=== PATIENT | female | born 1965 | race African-American/Black ===

== ENCOUNTER 2019-06-26 06:17 | Emergency (ER) | payer MEDICAID ==
[~2019-06-26] VITALS: Ht 160 cm; Wt 90.0 kg
[2019-06-26] MEDS ORDERED: KETOROLAC 30MG/ML VIAL IM ONE (07:30)
[2019-06-26] MEDS ORDERED: HYDROCODONE/ACETAMINOPHEN 5/325MG TABLET PO ONE (07:30)
[2019-06-26] MEDS ORDERED: DIPHENHYDRAMINE 25MG CAPSULE PO ONE (09:15)
[2019-06-26 10:23] LABS: CLARITY URINE TURBID (CLEAR); COLOR URINE DARK YELLOW (YELLOW); KETONES URINE TRACE (NEGATIVE); LEUKOCYTE ESTERASE URINE 1+ (NEGATIVE); NITRITE URINE NEGATIVE (NEGATIVE); OCCULT BLOOD URINE NEGATIVE (NEGATIVE); PROTEIN URINE TRACE (NEGATIVE); SPECIFIC GRAVITY URINE 1.026 (1.005-1.030); UROBILINOGEN URINE 0.2 E.U./dL (0.2-1.0)
[2019-06-26 10:52] LABS: UCG SCREEN NEGATIVE
[2019-06-26 11:15] VITALS: BP 125/70
== END 2019-06-26 11:25 | disposition left against medical advice (07) ==
LOC: ER 06:17
DX: M54.42 Lumbago with sciatica, left side (principal); R51 Headache; F17.290 Nicotine dependence, other tobacco product, uncomplicated; E78.00 Pure hypercholesterolemia, unspecified; I10 Essential (primary) hypertension
CPT/HCPCS: 72100; 81003; 81025; 96372; 99284; J1885; Q0163

== ENCOUNTER 2020-05-13 05:24 | Emergency (ER) | payer MEDICAID ==
[~2020-05-13] VITALS: Ht 160 cm; Wt 69.0 kg
[2020-05-13] MEDS ORDERED: ACETAMINOPHEN 325MG TABLET PO STA (05:52)
[2020-05-13 06:11] LABS: BASOPHILS % 0.6 % (0.0-2.0); EOSINOPHILS % 1.3 % (0.0-5.0); HEMOGLOBIN. 13.9 g/dL (12.0-16.0); LYMPHOCYTES % 27.5 % (20.0-50.0); MEAN CORPUSCULAR HEMOGLOBIN 30.6 pg (28.0-32.0); MEAN CORPUSCULAR VOLUME 92.6 fL (81.0-99.0); MONOCYTES % 10.7 % (2.0-8.0); NEUTROPHILS % 59.9 % (40.0-76.0); PLATELET 216 x1000/uL (130-400); RED BLOOD CELL COUNT 4.53 mill/uL (4.2-5.4); RED CELL DISTRIBUTION WIDTH 13.9 % (11.6-14.6)
[2020-05-13] MEDS ORDERED: MORPHINE SULFATE 4 MG/ML CPJ (NOT FOR IM USE) IV STA (06:19)
[2020-05-13] MEDS ORDERED: ONDANSETRON HCL 4MG/2ML INJ IV STA (06:19)
[2020-05-13 06:23] LABS: CHLORIDE 109 mEq/L (98-107)
[2020-05-13 06:25] LABS: CLARITY URINE CLEAR (CLEAR); COLOR URINE YELLOW (YELLOW); KETONES URINE NEGATIVE (NEGATIVE); LEUKOCYTE ESTERASE URINE TRACE (NEGATIVE); NITRITE URINE NEGATIVE (NEGATIVE); OCCULT BLOOD URINE NEGATIVE (NEGATIVE); PROTEIN URINE NEGATIVE (NEGATIVE); SPECIFIC GRAVITY URINE 1.021 (1.005-1.030); UROBILINOGEN URINE 0.2 E.U./dL (0.2-1.0)
[2020-05-13 06:29] LABS: ETHANOL BLOOD < 10 mg/dL; INR 1.1; PROTHROMBIN TIME 11.1 sec (9.6-11.0)
[2020-05-13] MEDS ORDERED: SODIUM CHLORIDE 0.9% 1,000 ML IV ONE (06:30)
[2020-05-13 07:19] LABS: METHADONE URINE SCREEN NEGATIVE (NEGATIVE); OPIATES URINE SCREEN NEGATIVE (NEGATIVE)
[2020-05-13 07:21] LABS: *AMPHETAMINES SCREEN URINE NEGATIVE (NEGATIVE); *BARBITURATES SCREEN URINE NEGATIVE (NEGATIVE); *BENZODIAZEPINES SCREEN URINE NEGATIVE (NEGATIVE); *COCAINE SCREEN URINE PRESUMTIVE POSITIVE (NEGATIVE); CANNABINOID URINE SCREEN NEGATIVE (NEGATIVE); PHENCYCLIDINE URINE SCREEN NEGATIVE (NEGATIVE)
[2020-05-13 09:31] VITALS: BP 155/81
== END 2020-05-13 09:33 | disposition home or self-care (01) ==
LOC: ER 05:37
DX: R10.9 Unspecified abdominal pain (principal); M54.30 Sciatica, unspecified side; F14.10 Cocaine abuse, uncomplicated; I10 Essential (primary) hypertension
CPT/HCPCS: 36415; 74176; 76705; 80053; 80305; 80320; 81003; 83605; 83690; 85025; 85610; 96361; 96374; 96375; 99285; J2270; J2405; J7030; G0480

== ENCOUNTER 2023-03-02 07:17 | Emergency (ER) | payer MEDICAID, OTHER ==
[~2023-03-02] VITALS: Ht 165.1 cm; Wt 70.0 kg
[2023-03-02 07:37] VITALS: O2SAT 96
[2023-03-02] MEDS ORDERED: ASPIRIN 325MG EC TABLET PO ONE (09:30)
[2023-03-02 09:31] LABS: BASOPHILS % 0.7 % (0.0-2.0); EOSINOPHILS % 0.9 % (0.0-5.0); HEMATOCRIT. 40.2 % (36.0-48.0); LYMPHOCYTES % 15.1 % (20.0-50.0); MEAN CORPUSCULAR HEMOGLOBIN 29.7 pg (28.0-32.0); MEAN CORPUSCULAR HGB CONC 32.3 g/dL (31.0-37.0); MEAN PLATELET VOLUME 9.3 fl (7.4-10.4); MONOCYTES % 6.8 % (2.0-8.0); NEUTROPHILS % 76.5 % (40.0-76.0); PLATELET 212 x1000/uL (130-400); RED BLOOD CELL COUNT 4.37 mill/uL (4.2-5.4)
[2023-03-02 09:38] LABS: CHLORIDE 104 mEq/L (98-107); INDEX HEMOLYSI 3 (1-3); INDEX ICTERIC 1 (1-4); INDEX LIPEMIC 1 (1-3); POTASSIUM 4.5 mEq/L (3.5-5.1); SODIUM 138 mEq/L (136-145)
[2023-03-02 09:47] LABS: ALANINE AMINOTRANSFERASE 24 IU/L (13-61); ALBUMIN 3.6 g/dL (3.4-5.0); ASPARTATE AMINOTRANSFERASE 27 IU/L (15-37); BILIRUBIN TOTAL 0.4 mg/dL (0.1-1.0); CARBON DIOXIDE 25 mEq/L (21-32); CREATININE 0.7 mg/dL (0.6-1.3); GLUCOSE 104 mg/dL (70-105); NT PRO B-TYPE NATRIURETIC PEP 4610 pg/mL (5-125); PROTEIN TOTAL 7.5 g/dL (6.0-8.3); TROPONIN I HIGH SENSITIVITY 39 ng/L (<54); UREA NITROGEN BLOOD 19 mg/dL (7-21)
[2023-03-02 10:02] VITALS: BP 109/70; PULSE 81; RESP 16; TEMP 98.1
[2023-03-02] MEDS ORDERED: FUROSEMIDE 40MG/4ML VIAL IVP ONE (12:00)
[2023-03-02] MEDS ORDERED: LISI10TA26 MT (13:19)
[2023-03-02] MEDS ORDERED: FURO-152 MT (13:19)
[2023-03-02] MEDS ORDERED: ASPI-1497 MT (13:19)
== END 2023-03-02 13:34 | disposition home or self-care (01) ==
LOC: ER 07:17
DX: I11.0 Hypertensive heart disease with heart failure (principal); I50.9 Heart failure, unspecified; R42 Dizziness and giddiness
CPT/HCPCS: 36415; 71045; 80053; 83880; 84484; 85025; 93005; 99285

== ENCOUNTER 2023-05-18 06:25 | Emergency (ER) | payer OTHER ==
[~2023-05-18] VITALS: Ht 167.6 cm; Wt 73.0 kg
[~2023-05-18 06:25] MED LIST: ASPI-1497 MT; FURO-152 MT; LISI10TA26 MT
[2023-05-18 06:26] VITALS: O2SAT 99
[2023-05-18] MEDS ORDERED: LIDOCAINE HCL/PF 1% 10 MG/ML 5ML VIAL INFIL ONE (06:30)
[2023-05-18] MEDS ORDERED: TETANUS, DIPHTHERIA, PERTUSSIS VAC/PF 0.5ML (>10YR OLD) IM ONE (06:30)
[2023-05-18 06:55] VITALS: TEMP 97.9
[2023-05-18 07:35] LABS: CHLORIDE 105 mEq/L (98-107); INDEX HEMOLYSI 4 (1-3); INDEX ICTERIC 1 (1-4); INDEX LIPEMIC 1 (1-3); SODIUM 139 mEq/L (136-145)
[2023-05-18 07:42] LABS: BASOPHILS % 0.8 % (0.0-2.0); EOSINOPHILS % 0.7 % (0.0-5.0); HEMATOCRIT. 43.9 % (36.0-48.0); HEMOGLOBIN. 14.4 g/dL (12.0-16.0); LYMPHOCYTES % 39.6 % (20.0-50.0); MEAN CORPUSCULAR HEMOGLOBIN 30.6 pg (28.0-32.0); MEAN CORPUSCULAR HGB CONC 32.7 g/dL (31.0-37.0); MEAN CORPUSCULAR VOLUME 93.5 fL (81.0-99.0); MEAN PLATELET VOLUME 8.9 fl (7.4-10.4); MONOCYTES % 9.3 % (2.0-8.0); NEUTROPHILS % 49.6 % (40.0-76.0); PLATELET 296 x1000/uL (130-400); RED BLOOD CELL COUNT 4.69 mill/uL (4.2-5.4); RED CELL DISTRIBUTION WIDTH 14.8 % (11.6-14.6); WHITE BLOOD COUNT 5.5 x1000/uL (4.5-11.0)
[2023-05-18 07:45] LABS: ALANINE AMINOTRANSFERASE 24 IU/L (13-61); ALBUMIN 3.9 g/dL (3.4-5.0); ASPARTATE AMINOTRANSFERASE 41 IU/L (15-37); BILIRUBIN TOTAL 0.4 mg/dL (0.1-1.0); CALCIUM 8.9 mg/dL (8.5-10.1); CARBON DIOXIDE 26 mEq/L (21-32); CREATININE 0.7 mg/dL (0.6-1.3); ETHANOL BLOOD 227 mg/dL (<10); GLUCOSE 96 mg/dL (70-105); PROTEIN TOTAL 8.6 g/dL (6.0-8.3); UREA NITROGEN BLOOD 16 mg/dL (7-21)
[2023-05-18 08:03] LABS: POTASSIUM 3.7 mEq/L (3.5-5.1)
[2023-05-18 12:22] VITALS: BP 126/83; PULSE 91; RESP 18
== END 2023-05-18 12:29 | disposition short-term general hospital (02) ==
LOC: ER 06:25 → CANBEDREQ 09:30 → ER 12:29
DX: S01.112A Laceration without foreign body of left eyelid and periocular area, initial encounter (principal); I11.0 Hypertensive heart disease with heart failure; I50.9 Heart failure, unspecified; I63.9 Cerebral infarction, unspecified; W19.XXXA Unspecified fall, initial encounter; Y93.89 Activity, other specified; Y92.89 Other specified places as the place of occurrence of the external cause; Y99.8 Other external cause status
CPT/HCPCS: 80053; 80320; 85025; 36415; 71045; 73560; 70450; 90715; 12011; 90471; 99285; J3490; Z7610 ×4; G0480

== ENCOUNTER 2023-07-18 12:16 | Emergency (ER) | payer OTHER ==
[~2023-07-18] VITALS: Ht 175.3 cm; Wt 78.0 kg
[2023-07-18 12:19] VITALS: O2SAT 97
[2023-07-18 13:36] LABS: BASOPHILS % 0.7 % (0.0-2.0); EOSINOPHILS % 1.1 % (0.0-5.0); HEMATOCRIT. 36.1 % (36.0-48.0); HEMOGLOBIN. 12.3 g/dL (12.0-16.0); LYMPHOCYTES % 15.5 % (20.0-50.0); MEAN CORPUSCULAR HEMOGLOBIN 31.3 pg (28.0-32.0); MEAN CORPUSCULAR HGB CONC 34.1 g/dL (31.0-37.0); MEAN CORPUSCULAR VOLUME 91.7 fL (81.0-99.0); MEAN PLATELET VOLUME 9.4 fl (7.4-10.4); MONOCYTES % 8.4 % (2.0-8.0); NEUTROPHILS % 74.3 % (40.0-76.0); PLATELET 342 x1000/uL (130-400); RED BLOOD CELL COUNT 3.93 mill/uL (4.2-5.4); RED CELL DISTRIBUTION WIDTH 14.8 % (11.6-14.6); WHITE BLOOD COUNT 9.3 x1000/uL (4.5-11.0)
[2023-07-18 13:51] LABS: ALANINE AMINOTRANSFERASE 12 IU/L (10-49); ALBUMIN 3.9 g/dL (3.2-4.8); ASPARTATE AMINOTRANSFERASE 30 IU/L (<34); BILIRUBIN TOTAL 1.1 mg/dL (0.1-1.0); CALCIUM 9.1 mg/dL (8.7-10.4); CARBON DIOXIDE 29 mEq/L (21-32); CHLORIDE 102 mEq/L (98-107); CREATININE 0.8 mg/dL (0.6-1.0); GLUCOSE 102 mg/dL (70-105); POTASSIUM 4.4 mEq/L (3.5-5.1); PROTEIN TOTAL 6.5 g/dL (6.0-8.3); SODIUM 137 mEq/L (136-145); TROPONIN I HIGH SENSITIVITY 20 ng/L (3.0-34); UREA NITROGEN BLOOD 12 mg/dL (9-23)
[2023-07-18] MEDS ORDERED: MORPHINE SULFATE 4 MG/ML CPJ (NOT FOR IM USE) IV ONE (14:30)
[2023-07-18] MEDS ORDERED: FUROSEMIDE 40MG/4ML VIAL IVP ONE (20:00)
[2023-07-18 23:18] VITALS: BP 132/72; PULSE 76; RESP 17; TEMP 98.3
== END 2023-07-18 23:35 | disposition short-term general hospital (02) ==
LOC: ER 12:16
DX: I11.0 Hypertensive heart disease with heart failure (principal); I50.9 Heart failure, unspecified; R10.9 Unspecified abdominal pain; Z20.822 Contact with and (suspected) exposure to COVID-19
CPT/HCPCS: 80053; 83880; 83690; 85025; 84484; 87804 ×2; 36415; 71045; 74176; 93005; 96374; 96375; 99285; 87426; J1940; J2270; C9803; Z7610 ×4

== ENCOUNTER 2023-12-03 13:24 | Emergency (ER) | payer OTHER ==
[~2023-12-03] VITALS: Ht 165.1 cm; Wt 68.0 kg
[~2023-12-03 13:24] MED LIST changes: +ALBU18HF2 IH; +FURO-151 MT
[2023-12-03 13:37] VITALS: O2SAT 99
[2023-12-03] MEDS: METOCLOPRAMIDE HCL 10MG/2ML VIAL IV ONE (15:05)
[2023-12-03] MEDS: MORPHINE SULFATE 4 MG/ML INJ (FOR IV/IM USE) IV STA (15:07)
[2023-12-03 15:25] LABS: CLARITY URINE CLEAR (CLEAR); COLOR URINE YELLOW (YELLOW); GLUCOSE URINE 2+ (NEGATIVE); KETONES URINE NEGATIVE (NEGATIVE); LEUKOCYTE ESTERASE URINE NEGATIVE (NEGATIVE); NITRITE URINE NEGATIVE (NEGATIVE); OCCULT BLOOD URINE NEGATIVE (NEGATIVE); PH URINE 5.5 (4.5-8.0); PROTEIN URINE NEGATIVE (NEGATIVE); SPECIFIC GRAVITY URINE 1.009 (1.005-1.030); UROBILINOGEN URINE 0.2 E.U./dL (0.2-1.0)
[2023-12-03 15:51] LABS: BASOPHILS % 0.5 % (0.0-2.0); EOSINOPHILS % 0.8 % (0.0-5.0); HEMATOCRIT. 37.7 % (36.0-48.0); HEMOGLOBIN. 12.8 g/dL (12.0-16.0); LYMPHOCYTES % 11.7 % (20.0-50.0); MEAN CORPUSCULAR HEMOGLOBIN 32.1 pg (28.0-32.0); MEAN CORPUSCULAR VOLUME 94.4 fL (81.0-99.0); MEAN PLATELET VOLUME 8.7 fl (7.4-10.4); MONOCYTES % 9.7 % (2.0-8.0); NEUTROPHILS % 77.3 % (40.0-76.0); PLATELET 276 x1000/uL (130-400); RED CELL DISTRIBUTION WIDTH 14.9 % (11.6-14.6); WHITE BLOOD COUNT 11.5 x1000/uL (4.5-11.0)
[2023-12-03 15:52] LABS: BACTERIA URINE NONE SEEN; RBC URINE NONE SEEN /hpf (0-2); SQUAMOUS EPITHELIAL CELL URINE NONE SEEN /lpf (RARE/1+); WBC URINE NONE SEEN /hpf (0-2)
[2023-12-03 15:59] LABS: CHLORIDE 107 mEq/L (98-107); SODIUM 140 mEq/L (136-145)
[2023-12-03 16:00] LABS: CALCIUM 9.3 mg/dL (8.7-10.4); CARBON DIOXIDE 26 mEq/L (21-32)
[2023-12-03 16:05] LABS: CREATININE 0.9 mg/dL (0.6-1.0); GLUCOSE 98 mg/dL (70-105); UREA NITROGEN BLOOD 12 mg/dL (9-23)
[2023-12-03 16:07] LABS: ALANINE AMINOTRANSFERASE 14 IU/L (10-49); ALBUMIN 4.2 g/dL (3.2-4.8); ASPARTATE AMINOTRANSFERASE 28 IU/L (<34); BILIRUBIN DIRECT 0.2 mg/dL (<=3.0); BILIRUBIN TOTAL 0.6 mg/dL (0.1-1.0); PROTEIN TOTAL 7.1 g/dL (6.0-8.3); TROPONIN I HIGH SENSITIVITY 23 ng/L (3.0-34)
[2023-12-03 20:04] VITALS: BP 132/65; PULSE 92; RESP 20; TEMP 98.7
== END 2023-12-03 20:05 | disposition short-term general hospital (02) ==
LOC: ER 14:16 → CANBEDREQ 17:54 → ER 20:05
DX: I11.0 Hypertensive heart disease with heart failure (principal); I50.9 Heart failure, unspecified; R51.9 Headache, unspecified; R10.9 Unspecified abdominal pain; D72.829 Elevated white blood cell count, unspecified; Z98.890 Other specified postprocedural states; Z79.82 Long term (current) use of aspirin
CPT/HCPCS: 80076; 80048; 81003; 83880; 83605; 83690; 85025; 84484; 36415; 71045; 93005; 96374; 96375; 99285; J2765; J2270; Z7610 ×2

== ENCOUNTER 2023-12-25 16:23 | Emergency (ER) | payer OTHER ==
[~2023-12-25] VITALS: Ht 167.6 cm; Wt 68.0 kg
[2023-12-25 16:38] VITALS: O2SAT 100
[2023-12-25 19:10] LABS: BASOPHILS % 0.5 % (0.0-2.0); EOSINOPHILS % 0.7 % (0.0-5.0); HEMOGLOBIN. 12.7 g/dL (12.0-16.0); LYMPHOCYTES % 24.8 % (20.0-50.0); MEAN CORPUSCULAR HEMOGLOBIN 31.9 pg (28.0-32.0); MEAN CORPUSCULAR HGB CONC 34.3 g/dL (31.0-37.0); MEAN CORPUSCULAR VOLUME 93.1 fL (81.0-99.0); MEAN PLATELET VOLUME 8.8 fl (7.4-10.4); MONOCYTES % 9.4 % (2.0-8.0); NEUTROPHILS % 64.6 % (40.0-76.0); PLATELET 230 x1000/uL (130-400); RED BLOOD CELL COUNT 3.98 mill/uL (4.2-5.4); RED CELL DISTRIBUTION WIDTH 14.4 % (11.6-14.6)
[2023-12-25 19:18] LABS: CHLORIDE 108 mEq/L (98-107); POTASSIUM 4.2 mEq/L (3.5-5.1); SODIUM 140 mEq/L (136-145)
[2023-12-25 19:19] LABS: CARBON DIOXIDE 25 mEq/L (21-32)
[2023-12-25 19:20] LABS: CALCIUM 9.1 mg/dL (8.7-10.4)
[2023-12-25 19:24] LABS: CREATININE 0.9 mg/dL (0.6-1.0); GLUCOSE 100 mg/dL (70-105)
[2023-12-25 19:25] LABS: UREA NITROGEN BLOOD 14 mg/dL (9-23)
[2023-12-25 19:26] LABS: ALANINE AMINOTRANSFERASE 19 IU/L (10-49); ALBUMIN 4.1 g/dL (3.2-4.8); ASPARTATE AMINOTRANSFERASE 36 IU/L (<34); TROPONIN I HIGH SENSITIVITY 21 ng/L (3.0-34)
[2023-12-25 19:27] LABS: BILIRUBIN DIRECT 0.2 mg/dL (<=3.0); BILIRUBIN TOTAL 0.7 mg/dL (0.1-1.0); PROTEIN TOTAL 6.9 g/dL (6.0-8.3)
[2023-12-25 20:24] LABS: TROPONIN I HIGH SENSITIVITY 19 ng/L (3.0-34)
[2023-12-25] MEDS: MORPHINE SULFATE 4 MG/ML INJ (FOR IV/IM USE) IV ONE (20:27)
[2023-12-25] MEDS: ASPIRIN 325MG TABLET PO ONE (20:28)
[2023-12-25] MEDS: NITROGLYCERIN OINT 1GM/INCH UDPKT TD ONE (20:28)
[2023-12-25 23:19] VITALS: BP 131/93; PULSE 94; RESP 18; TEMP 98.6
== END 2023-12-25 23:29 | disposition short-term general hospital (02) ==
LOC: ER 16:23 → CANBEDREQ 12-26 07:25
DX: R07.9 Chest pain, unspecified (principal); I11.0 Hypertensive heart disease with heart failure; I50.9 Heart failure, unspecified; Z98.890 Other specified postprocedural states
CPT/HCPCS: 80076; 80048; 83880; 85025; 84484; 36415; 71045; 96374; 99285; J2270; Z7610 ×2

== ENCOUNTER 2024-01-12 05:54 | Inpatient (IN) | payer OTHER ==
[~2024-01-12] VITALS: Ht 157.5 cm; Wt 60.8 kg
[2024-01-12 06:10] VITALS: RESP 26
[2024-01-12 06:16] VITALS: PULSE 93; RESP 14; O2SAT 99
[2024-01-12] MEDS: IPRATROPIUM BROMIDE (0.02%) 0.5MG/2.5ML NEB HHN STA (06:16)
[2024-01-12] MEDS: ALBUTEROL (0.083%) 2.5MG/3ML NEB HHN STA (06:16)
[2024-01-12 06:22] LABS: BASOPHILS % 0.9 % (0.0-2.0); HEMATOCRIT. 40.1 % (36.0-48.0); HEMOGLOBIN. 13.2 g/dL (12.0-16.0); LYMPHOCYTES % 23.5 % (20.0-50.0); MEAN CORPUSCULAR HEMOGLOBIN 31.5 pg (28.0-32.0); MEAN CORPUSCULAR HGB CONC 32.8 g/dL (31.0-37.0); MEAN PLATELET VOLUME 8.8 fl (7.4-10.4); MONOCYTES % 9.3 % (2.0-8.0); NEUTROPHILS % 65.3 % (40.0-76.0); PLATELET 303 x1000/uL (130-400); RED BLOOD CELL COUNT 4.18 mill/uL (4.2-5.4); RED CELL DISTRIBUTION WIDTH 14.6 % (11.6-14.6); WHITE BLOOD COUNT 7.7 x1000/uL (4.5-11.0)
[2024-01-12 06:25] LABS: CHLORIDE 105 mEq/L (98-107); POTASSIUM 4.2 mEq/L (3.5-5.1); SODIUM 140 mEq/L (136-145)
[2024-01-12 06:26] LABS: CALCIUM 9.2 mg/dL (8.7-10.4); CARBON DIOXIDE 25 mEq/L (21-32)
[2024-01-12 06:31] LABS: CREATININE 1.1 mg/dL (0.6-1.0); GLUCOSE 114 mg/dL (70-105); UREA NITROGEN BLOOD 15 mg/dL (9-23)
[2024-01-12 06:32] LABS: TROPONIN I HIGH SENSITIVITY 30 ng/L (3.0-34)
[2024-01-12 06:33] LABS: ALANINE AMINOTRANSFERASE 20 IU/L (10-49); ALBUMIN 4.1 g/dL (3.2-4.8); ASPARTATE AMINOTRANSFERASE 38 IU/L (<34); BILIRUBIN DIRECT 0.4 mg/dL (<=3.0); BILIRUBIN TOTAL 1.4 mg/dL (0.1-1.0)
[2024-01-12 06:38] LABS: BG BASE EXCESS -1.3 mmol/L (-2.0-2.0); BG CARBOXYHEMOGLOBIN 0.6 % (0.5-1.5); BG DEOXYHEMOGLOBIN 1.1 % (0.0-5.0); BG FRACTION INSPIRED OXYGEN 100; BG HCO3 ACT 20.7 mmol/L (22.0-26.0); BG METHEMOGLOBIN 0.1 % (0.0-1.5); BG OXYGEN SATURATION 98.9 % (92.0-98.5); BG OXYHEMOGLOBIN 98.2 % (94.0-97.0); BG PCO2 27.5 mmHg (35.0-45.0); BG PH 7.495 (7.350-7.450); BG PO2 144.7 mmHg (75.0-100.0); BG SAMPLE SITE RIGHT RADIAL; BG TOTAL HEMOGLOBIN 13.3 g/dL (12.0-18.0); BG VENT MODE MASK - NRB
[2024-01-12] MEDS: FUROSEMIDE 40MG/4ML VIAL IVP ONE (08:28)
[2024-01-12] MEDS: MORPHINE SULFATE 4 MG/ML INJ (FOR IV/IM USE) IV ONE (10:26)
[2024-01-13] MEDS ORDERED: CYCLOBENZAPRINE 10MG TABLET PO PRN (03:45)
[2024-01-13 11:47] VITALS: BP 137/97; PULSE 99; RESP 20; TEMP 98.2
[2024-01-13 12:00] VITALS: BP 128/86; PULSE 80; RESP 18; TEMP 97.5
[2024-01-13] MEDS: FUROSEMIDE 40MG/4ML VIAL IVP SCH (12:42)
[2024-01-13] MEDS: LOSARTAN 25 MG TABLET PO SCH (12:42)
[2024-01-13 14:46] LABS: *AMPHETAMINES SCREEN URINE NEGATIVE (NEGATIVE); *BARBITURATES SCREEN URINE NEGATIVE (NEGATIVE); *COCAINE SCREEN URINE NEGATIVE (NEGATIVE); METHADONE URINE SCREEN NEGATIVE (NEGATIVE); OPIATES URINE SCREEN NEGATIVE (NEGATIVE); PHENCYCLIDINE URINE SCREEN NEGATIVE (NEGATIVE)
[2024-01-13 14:47] LABS: ECSTASY MDMA SCREEN URINE NEGATIVE (NEGATIVE)
[2024-01-13 16:00] VITALS: BP 118/69; PULSE 84; RESP 20; TEMP 97.9
[2024-01-13] MEDS: KETOROLAC 15MG/ML VIAL IV PRN (17:51)
[2024-01-13 20:00] VITALS: BP 123/87; PULSE 87; RESP 19; TEMP 97
[2024-01-13] MEDS: CARVEDILOL 3.125 MG TABLET PO SCH (21:28)
[2024-01-13] MEDS ORDERED: NALOXONE HCL 0.4MG/ML VIAL IV PRN (21:30)
[2024-01-13 22:00] LABS: BASOPHILS % 0.5 % (0.0-2.0); EOSINOPHILS % 1.7 % (0.0-5.0); HEMATOCRIT. 40.2 % (36.0-48.0); LYMPHOCYTES % 19.6 % (20.0-50.0); MEAN CORPUSCULAR HEMOGLOBIN 31.2 pg (28.0-32.0); MEAN CORPUSCULAR HGB CONC 32.3 g/dL (31.0-37.0); MEAN CORPUSCULAR VOLUME 96.4 fL (81.0-99.0); MEAN PLATELET VOLUME 9.3 fl (7.4-10.4); NEUTROPHILS % 67.2 % (40.0-76.0); PLATELET 267 x1000/uL (130-400); RED BLOOD CELL COUNT 4.17 mill/uL (4.2-5.4); RED CELL DISTRIBUTION WIDTH 14.8 % (11.6-14.6)
[2024-01-13 22:12] LABS: POTASSIUM 4.2 mEq/L (3.5-5.1)
[2024-01-13 22:14] LABS: CALCIUM 9.5 mg/dL (8.7-10.4)
[2024-01-13 22:18] LABS: CREATININE 1.2 mg/dL (0.6-1.0)
[2024-01-14] VITALS: BP 108/70; PULSE 77; RESP 18; TEMP 97
[2024-01-14] MEDS: HYDROCODONE/ACETAMINOPHEN 5/325MG TABLET PO PRN (03:09)
[2024-01-14 04:00] VITALS: BP 118/72; PULSE 68; RESP 19; TEMP 97.4
[2024-01-14 08:00] VITALS: BP 114/75; PULSE 74; RESP 20; TEMP 97.8
[2024-01-14] MEDS ORDERED: LOSA25TA26 PO (10:41)
[2024-01-14] MEDS ORDERED: COR3 PO (10:41)
[2024-01-14 12:00] VITALS: BP 118/73; PULSE 72; RESP 20; TEMP 97.9
[2024-01-14 16:00] VITALS: BP 111/75; PULSE 89; RESP 20; TEMP 97.5
[2024-01-14 20:00] VITALS: BP 112/73; PULSE 77; RESP 18; TEMP 96.9
[2024-01-15] VITALS (7 sets, daily range): BP systolic 101–118; BP diastolic 54–69; PULSE 66–95; RESP 18–20; TEMP 96.5–98.3; O2SAT 99
[2024-01-15] MEDS: ONDANSETRON HCL 4MG/2ML INJ IV PRN (20:22)
[2024-01-15] MEDS: ZOLPIDEM TARTRATE 5MG TABLET PO PRN (20:23)
[2024-01-15] MEDS: ACETAMINOPHEN 325MG TABLET PO PRN (20:23)
[2024-01-15] MEDS: ALBUTEROL (0.083%) 2.5MG/3ML NEB HHN PRN (21:44)
[2024-01-16] VITALS: BP 112/64; PULSE 77; RESP 20; TEMP 97.6
[2024-01-16 04:00] VITALS: BP 107/75; PULSE 74; RESP 21; TEMP 98
[2024-01-16 08:00] VITALS: BP 116/73; PULSE 76; RESP 16; TEMP 97.4
[2024-01-16 12:00] VITALS: BP 112/65; PULSE 80; RESP 18; TEMP 97.6
[2024-01-16 13:59] VITALS: BP 112/65; PULSE 80; TEMP 97.6; O2SAT 97
== END 2024-01-16 15:40 | disposition home or self-care (01) | DRG 194 ==
LOC: ER 05:54 → 5WST 10:03 → 7EST 01-13 09:36
PROVIDERS: ADMIT Internal Medicine; ATTEND Internal Medicine
DX: I11.0 Hypertensive heart disease with heart failure (principal); J96.00 Acute respiratory failure, unspecified whether with hypoxia or hypercapnia; I50.43 Acute on chronic combined systolic (congestive) and diastolic (congestive) heart failure; E78.5 Hyperlipidemia, unspecified; R07.89 Other chest pain; F17.210 Nicotine dependence, cigarettes, uncomplicated
CPT/HCPCS: 36415; 36600; 71045; 80048; 80076; 80305; 82375; 82805; 83880; 84484; 85025; 93005; 94640; 94660; 99291; J1885; J1940; J2270; J2405

== ENCOUNTER 2024-02-18 07:50 | Emergency (ER) | payer OTHER ==
[~2024-02-18] VITALS: Ht 167.6 cm; Wt 77.0 kg
[~2024-02-18 07:50] MED LIST changes: +COR3 PO; +LOSA25TA26 PO
[2024-02-18 08:18] LABS: BASOPHILS % 0.4 % (0.0-2.0); EOSINOPHILS % 1.1 % (0.0-5.0); HEMATOCRIT. 42.8 % (36.0-48.0); HEMOGLOBIN. 13.6 g/dL (12.0-16.0); MEAN CORPUSCULAR HEMOGLOBIN 30.1 pg (28.0-32.0); MEAN CORPUSCULAR HGB CONC 31.8 g/dL (31.0-37.0); MEAN CORPUSCULAR VOLUME 94.8 fL (81.0-99.0); MEAN PLATELET VOLUME 8.2 fl (7.4-10.4); MONOCYTES % 8.1 % (2.0-8.0); NEUTROPHILS % 75.4 % (40.0-76.0); PLATELET 274 x1000/uL (130-400); RED BLOOD CELL COUNT 4.52 mill/uL (4.2-5.4); RED CELL DISTRIBUTION WIDTH 15.1 % (11.6-14.6); WHITE BLOOD COUNT 7.1 x1000/uL (4.5-11.0)
[2024-02-18 08:27] LABS: CHLORIDE 111 mEq/L (98-107); POTASSIUM 4.4 mEq/L (3.5-5.1); SODIUM 139 mEq/L (136-145)
[2024-02-18 08:28] LABS: CALCIUM 9.2 mg/dL (8.7-10.4); CARBON DIOXIDE 25 mEq/L (21-32)
[2024-02-18 08:33] LABS: CREATININE 0.9 mg/dL (0.6-1.0); GLUCOSE 90 mg/dL (70-105); UREA NITROGEN BLOOD 15 mg/dL (9-23)
[2024-02-18 08:36] LABS: TROPONIN I HIGH SENSITIVITY 17 ng/L (3.0-34)
[2024-02-18 08:49] LABS: INR 1.1; PARTIAL THROMBOPLASTIN TIME 28.6 sec (23.4-31.0); PROTHROMBIN TIME 11.7 sec (9.6-11.0)
[2024-02-18] MEDS ORDERED: PREDNISONE 20MG TABLET PO STA (09:39)
[2024-02-18] MEDS: PREDNISONE 20MG TABLET PO NR (09:58)
[2024-02-18] MEDS ORDERED: IPRATROPIUM BROMIDE (0.02%) 0.5MG/2.5ML NEB ONE (11:34)
[2024-02-18] MEDS: ALBUTEROL (0.083%) 2.5MG/3ML NEB HHN STA (11:38)
[2024-02-18 11:39] VITALS: PULSE 88; RESP 22; O2SAT 95
[2024-02-18] MEDS: IPRATROPIUM BROMIDE (0.02%) 0.5MG/2.5ML NEB HHN STA (11:39)
[2024-02-18 11:44] LABS: TROPONIN I HIGH SENSITIVITY 15 ng/L (3.0-34)
[2024-02-18 12:00] VITALS: PULSE 90; RESP 18; O2SAT 100
[2024-02-18] MEDS: ALBUTEROL (0.083%) 2.5MG/3ML NEB HHN SCH (12:00)
[2024-02-18 12:10] VITALS: PULSE 89; RESP 18; O2SAT 100
[2024-02-18 12:20] VITALS: PULSE 90; RESP 18; O2SAT 100
[2024-02-18] MEDS ORDERED: ALBU18HF2 IH (13:05)
[2024-02-18] MEDS ORDERED: P50 MT (13:05)
[2024-02-18 13:37] VITALS: BP 115/60; PULSE 81; RESP 18; TEMP 98.6
== END 2024-02-18 13:41 | disposition home or self-care (01) ==
LOC: ER 07:50
DX: J44.1 Chronic obstructive pulmonary disease with (acute) exacerbation (principal); I11.0 Hypertensive heart disease with heart failure; I50.9 Heart failure, unspecified; Z98.890 Other specified postprocedural states
CPT/HCPCS: 80048; 83880; 85025; 85610; 85730; 84484; 36415; 71045; 94640; 93005; 99285; J7512; Z7610 ×4

== ENCOUNTER 2024-03-24 08:27 | Inpatient (IN) | payer OTHER ==
[~2024-03-24] VITALS: Ht 157.5 cm; Wt 63.6 kg
[~2024-03-24 08:27] MED LIST changes: +ATOR40TA70 PO; +EMPA10TA PO; +FAMO20TA8 PO; -FURO-151 MT; -FURO-152 MT; +FURO40TA5 PO; -LISI10TA26 MT; +SPIR25TA6 PO
[2024-03-24] MEDS ORDERED: FAMOTIDINE 20MG/2ML VIAL IV ONE (08:45)
[2024-03-24 09:10] LABS: BASOPHILS % 0.7 % (0.0-2.0); HEMATOCRIT. 38.7 % (36.0-48.0); HEMOGLOBIN. 12.2 g/dL (12.0-16.0); LYMPHOCYTES % 37.8 % (20.0-50.0); MEAN CORPUSCULAR HEMOGLOBIN 29.8 pg (28.0-32.0); MEAN CORPUSCULAR HGB CONC 31.6 g/dL (31.0-37.0); MEAN CORPUSCULAR VOLUME 94.1 fL (81.0-99.0); MONOCYTES % 10.6 % (2.0-8.0); NEUTROPHILS % 49.9 % (40.0-76.0); PLATELET 297 x1000/uL (130-400); RED BLOOD CELL COUNT 4.11 mill/uL (4.2-5.4); RED CELL DISTRIBUTION WIDTH 15.6 % (11.6-14.6); WHITE BLOOD COUNT 4.9 x1000/uL (4.5-11.0)
[2024-03-24] MEDS: ONDANSETRON HCL 4MG/2ML INJ IV ONE (09:17)
[2024-03-24 09:18] LABS: CHLORIDE 110 mEq/L (98-107); POTASSIUM 4.1 mEq/L (3.5-5.1); SODIUM 140 mEq/L (136-145)
[2024-03-24] MEDS: FAMOTIDINE 20MG/2ML VIAL IV NR (09:18)
[2024-03-24 09:19] LABS: CALCIUM 9.1 mg/dL (8.7-10.4); CARBON DIOXIDE 22 mEq/L (21-32)
[2024-03-24 09:24] LABS: GLUCOSE 89 mg/dL (70-105); UREA NITROGEN BLOOD 9 mg/dL (9-23)
[2024-03-24 09:26] LABS: ALANINE AMINOTRANSFERASE 14 IU/L (10-49); ALBUMIN 4.3 g/dL (3.2-4.8); ASPARTATE AMINOTRANSFERASE 30 IU/L (<34); BILIRUBIN DIRECT 0.2 mg/dL (<=3.0); BILIRUBIN TOTAL 0.6 mg/dL (0.1-1.0); PROTEIN TOTAL 6.9 g/dL (6.0-8.3)
[2024-03-24 10:35] LABS: TROPONIN I HIGH SENSITIVITY 36 ng/L (3.0-34)
[2024-03-24] MEDS: FUROSEMIDE 40MG/4ML VIAL IVP ONE (10:49)
[2024-03-24 11:25] LABS: TROPONIN I HIGH SENSITIVITY 32 ng/L (3.0-34)
[2024-03-24 19:15] VITALS: BP 138/70; PULSE 80; RESP 20; TEMP 36.78072; TEMP 36.8072; O2SAT 97
[2024-03-24 20:00] VITALS: BP 138/70; PULSE 80; RESP 20; TEMP 36.78072; O2SAT 97
[2024-03-24] MEDS ORDERED: IPRATROPIUM/ALBUTEROL 0.5-3(2.5)MG/3ML NEB HHN PRN (23:00)
[2024-03-25] VITALS: BP_SYST 89; PULSE 89; RESP 20; TEMP 36.55848; O2SAT 97
[2024-03-25 04:00] VITALS: BP 122/75; PULSE 85; RESP 20; TEMP 36.78072; O2SAT 98
[2024-03-25 08:00] VITALS: BP 128/79; PULSE 86; RESP 18; TEMP 36.55848; O2SAT 98
[2024-03-25] MEDS: FUROSEMIDE 40MG/4ML VIAL IVP SCH (08:14)
[2024-03-25 09:14] LABS: BASOPHILS % 0.5 % (0.0-2.0); EOSINOPHILS % 0.9 % (0.0-5.0); HEMATOCRIT. 42.5 % (36.0-48.0); HEMOGLOBIN. 13.4 g/dL (12.0-16.0); LYMPHOCYTES % 25.7 % (20.0-50.0); MEAN CORPUSCULAR HEMOGLOBIN 29.7 pg (28.0-32.0); MEAN CORPUSCULAR HGB CONC 31.6 g/dL (31.0-37.0); MEAN CORPUSCULAR VOLUME 94.1 fL (81.0-99.0); MEAN PLATELET VOLUME 8.5 fl (7.4-10.4); MONOCYTES % 11.2 % (2.0-8.0); NEUTROPHILS % 61.7 % (40.0-76.0); PLATELET 280 x1000/uL (130-400); RED BLOOD CELL COUNT 4.52 mill/uL (4.2-5.4); RED CELL DISTRIBUTION WIDTH 15.6 % (11.6-14.6); WHITE BLOOD COUNT 6.7 x1000/uL (4.5-11.0)
[2024-03-25 09:24] LABS: CHLORIDE 105 mEq/L (98-107); POTASSIUM 4.3 mEq/L (3.5-5.1); SODIUM 138 mEq/L (136-145)
[2024-03-25 09:25] LABS: CARBON DIOXIDE 25 mEq/L (21-32)
[2024-03-25 09:26] LABS: CALCIUM 9.4 mg/dL (8.7-10.4)
[2024-03-25 09:30] LABS: CREATININE 1.1 mg/dL (0.6-1.0); GLUCOSE 80 mg/dL (70-105); UREA NITROGEN BLOOD 12 mg/dL (9-23)
[2024-03-25 09:41] LABS: *AMPHETAMINES SCREEN URINE NEGATIVE (NEGATIVE); *BARBITURATES SCREEN URINE NEGATIVE (NEGATIVE); *BENZODIAZEPINES SCREEN URINE NEGATIVE (NEGATIVE)
[2024-03-25 09:42] LABS: *COCAINE SCREEN URINE PRESUMPTIVE POSITIVE (NEGATIVE); CANNABINOID URINE SCREEN NEGATIVE (NEGATIVE); ECSTASY MDMA SCREEN URINE NEGATIVE (NEGATIVE); METHADONE URINE SCREEN NEGATIVE (NEGATIVE); OPIATES URINE SCREEN NEGATIVE (NEGATIVE); PHENCYCLIDINE URINE SCREEN PRESUMTIVE POSITIVE (NEGATIVE)
[2024-03-25 12:00] VITALS: BP 137/91; PULSE 100; RESP 18; TEMP 36.83628; O2SAT 98
[2024-03-25 16:00] VITALS: BP 129/75; PULSE 83; RESP 18; TEMP 36.61404; O2SAT 98
[2024-03-25] MEDS: CYCLOBENZAPRINE 10MG TABLET PO PRN ×2 (17:51)
[2024-03-25 20:00] VITALS: BP 135/90; PULSE 89; RESP 18; TEMP 36.61404; O2SAT 99
[2024-03-25] MEDS: LABETALOL HCL 100MG TABLET PO SCH (21:30)
[2024-03-26] VITALS: BP 128/82; PULSE 86; RESP 18; TEMP 36.61404; O2SAT 98
[2024-03-26 04:00] VITALS: BP 122/70; PULSE 89; RESP 18; TEMP 36.44736; O2SAT 99
[2024-03-26 08:00] VITALS: BP 128/88; PULSE 80; RESP 18; TEMP 36.61404; O2SAT 100
[2024-03-26] MEDS ORDERED: ACETAMINOPHEN 650MG/20.3ML UDC PO PRN (09:00)
[2024-03-26] MEDS: ACETAMINOPHEN 325MG TABLET PO PRN (10:11)
[2024-03-26] MEDS ORDERED: ACETAMINOPHEN 500MG TABLET PO PRN (10:15)
[2024-03-26 12:00] VITALS: BP 124/87; PULSE 100; RESP 18; TEMP 36.61404; O2SAT 96
[2024-03-26 16:00] VITALS: BP 95/64; PULSE 87; RESP 18; TEMP 36.9474; O2SAT 100
[2024-03-26 20:00] VITALS: BP 114/73; PULSE 93; RESP 18; TEMP 36.72516; O2SAT 100
[2024-03-27] VITALS: PULSE 84; RESP 18; TEMP 37.00296; O2SAT 100
[2024-03-27 04:00] VITALS: BP 107/63; PULSE 79; RESP 19; TEMP 35.89176; O2SAT 100
[2024-03-27 08:00] VITALS: BP 107/68; PULSE 81; RESP 18; TEMP 36.55848; O2SAT 98
[2024-03-27] MEDS ORDERED: ASPI-1497 MT (11:15)
[2024-03-27 11:20] VITALS: BP 107/68; PULSE 81; TEMP 97.8; O2SAT 98
== END 2024-03-27 13:38 | disposition home or self-care (01) | DRG 194 ==
LOC: ER 08:27 → 5WST 09:39 → 8WST 18:53
PROVIDERS: ADMIT Internal Medicine; ATTEND Internal Medicine
DX: I11.0 Hypertensive heart disease with heart failure (principal); J96.00 Acute respiratory failure, unspecified whether with hypoxia or hypercapnia; I47.20 Ventricular tachycardia, unspecified; J68.0 Bronchitis and pneumonitis due to chemicals, gases, fumes and vapors; R16.0 Hepatomegaly, not elsewhere classified; J98.4 Other disorders of lung; E78.00 Pure hypercholesterolemia, unspecified; F10.10 Alcohol abuse, uncomplicated; K57.30 Diverticulosis of large intestine without perforation or abscess without bleeding; K21.9 Gastro-esophageal reflux disease without esophagitis; Y90.9 Presence of alcohol in blood, level not specified; F14.10 Cocaine abuse, uncomplicated; I34.0 Nonrheumatic mitral (valve) insufficiency; Z91.148 Patient's other noncompliance with medication regimen for other reason; I50.21 Acute systolic (congestive) heart failure
CPT/HCPCS: 36415; 71045; 74176; 80048; 80076; 80305; 84484; 85025; 93005; 99291; J1940; J2405; J3490

== ENCOUNTER 2024-04-10 18:20 | Emergency (ER) | payer OTHER ==
[~2024-04-10] VITALS: Ht 160 cm; Wt 77.0 kg
[2024-04-10] MEDS ORDERED: FUROSEMIDE 100MG/10ML VIAL IVP ONE (18:45)
[2024-04-10 19:23] LABS: *AMPHETAMINES SCREEN URINE NEGATIVE (NEGATIVE); *BARBITURATES SCREEN URINE NEGATIVE (NEGATIVE); *BENZODIAZEPINES SCREEN URINE NEGATIVE (NEGATIVE); *COCAINE SCREEN URINE PRESUMPTIVE POSITIVE (NEGATIVE); METHADONE URINE SCREEN NEGATIVE (NEGATIVE)
[2024-04-10] MEDS: PREDNISONE 20MG TABLET PO STA (19:23)
[2024-04-10] MEDS: FUROSEMIDE 40MG/4ML VIAL IV NR (19:23)
[2024-04-10 19:24] LABS: CANNABINOID URINE SCREEN NEGATIVE (NEGATIVE); ECSTASY MDMA SCREEN URINE NEGATIVE (NEGATIVE); OPIATES URINE SCREEN NEGATIVE (NEGATIVE); PHENCYCLIDINE URINE SCREEN PRESUMTIVE POSITIVE (NEGATIVE)
[2024-04-10 19:42] VITALS: PULSE 96; RESP 22; O2SAT 98
[2024-04-10] MEDS: ALBUTEROL (0.083%) 2.5MG/3ML NEB HHN STA (19:42)
[2024-04-10] MEDS: IPRATROPIUM BROMIDE (0.02%) 0.5MG/2.5ML NEB HHN STA (19:42)
[2024-04-10 19:43] LABS: INR 1.2; PROTHROMBIN TIME 13.1 sec (9.6-11.0)
[2024-04-10 19:44] LABS: BASOPHILS % 0.5 % (0.0-2.0); DIFFERENTIAL COMMENT 0; EOSINOPHILS % 0.3 % (0.0-5.0); HEMATOCRIT. 39.8 % (36.0-48.0); HEMOGLOBIN. 12.6 g/dL (12.0-16.0); LYMPHOCYTES % 22.4 % (20.0-50.0); MEAN CORPUSCULAR HEMOGLOBIN 29.6 pg (28.0-32.0); MEAN CORPUSCULAR HGB CONC 31.6 g/dL (31.0-37.0); MEAN CORPUSCULAR VOLUME 93.4 fL (81.0-99.0); MEAN PLATELET VOLUME 9.3 fl (7.4-10.4); MONOCYTES % 9.4 % (2.0-8.0); NEUTROPHILS % 67.4 % (40.0-76.0); PLATELET 251 x1000/uL (130-400); RED BLOOD CELL COUNT 4.26 mill/uL (4.2-5.4); RED CELL DISTRIBUTION WIDTH 15.9 % (11.6-14.6); WHITE BLOOD COUNT 7.8 x1000/uL (4.5-11.0)
[2024-04-10 19:48] LABS: CHLORIDE 104 mEq/L (98-107); POTASSIUM 3.8 mEq/L (3.5-5.1); SODIUM 138 mEq/L (136-145)
[2024-04-10 19:49] LABS: CALCIUM 9.6 mg/dL (8.7-10.4); CARBON DIOXIDE 25 mEq/L (21-32)
[2024-04-10 19:54] LABS: CREATININE 1.2 mg/dL (0.6-1.0); GLUCOSE 121 mg/dL (70-105); UREA NITROGEN BLOOD 18 mg/dL (9-23)
[2024-04-10 19:55] LABS: TROPONIN I HIGH SENSITIVITY 22 ng/L (3.0-34)
[2024-04-10 19:57] LABS: ETHANOL BLOOD < 10 mg/dL (<10)
[2024-04-10 20:16] VITALS: BP 143/102; PULSE 103; RESP 28; TEMP 36.66960; O2SAT 99
== END 2024-04-10 20:55 | disposition home or self-care (01) ==
LOC: ER 18:20 → CANBEDREQ 20:38 → ER 20:55
DX: R06.02 Shortness of breath (principal); F19.10 Other psychoactive substance abuse, uncomplicated; I11.0 Hypertensive heart disease with heart failure; I50.9 Heart failure, unspecified; F14.10 Cocaine abuse, uncomplicated; Z79.899 Other long term (current) drug therapy
CPT/HCPCS: 80305; 80048; 80320; 83880; 85025; 85610; 84484; 36415; 71045; 94640; 93005; 96374; 99285; J7512; J1940; Z7610 ×4; G0480

== ENCOUNTER 2024-04-14 22:44 | Inpatient (IN) | payer OTHER ==
[~2024-04-14] VITALS: Ht 162.6 cm; Wt 62.2 kg
[2024-04-14 23:30] LABS: BASOPHILS % 0.5 % (0.0-2.0); EOSINOPHILS % 0.6 % (0.0-5.0); HEMATOCRIT. 38.9 % (36.0-48.0); HEMOGLOBIN. 12.7 g/dL (12.0-16.0); MEAN CORPUSCULAR HEMOGLOBIN 30.1 pg (28.0-32.0); MEAN CORPUSCULAR HGB CONC 32.5 g/dL (31.0-37.0); MEAN CORPUSCULAR VOLUME 92.4 fL (81.0-99.0); MEAN PLATELET VOLUME 8.8 fl (7.4-10.4); MONOCYTES % 12.1 % (2.0-8.0); NEUTROPHILS % 55.8 % (40.0-76.0); PLATELET 311 x1000/uL (130-400); RED BLOOD CELL COUNT 4.21 mill/uL (4.2-5.4); RED CELL DISTRIBUTION WIDTH 16.3 % (11.6-14.6); WHITE BLOOD COUNT 7.2 x1000/uL (4.5-11.0)
[2024-04-14 23:32] LABS: INR 1.4; PARTIAL THROMBOPLASTIN TIME 28.9 sec (23.4-31.0); PROTHROMBIN TIME 14.8 sec (9.6-11.0)
[2024-04-14 23:44] LABS: CHLORIDE 105 mEq/L (98-107); POTASSIUM 4.1 mEq/L (3.5-5.1); SODIUM 138 mEq/L (136-145)
[2024-04-14 23:45] LABS: CALCIUM 9.5 mg/dL (8.7-10.4); CARBON DIOXIDE 22 mEq/L (21-32)
[2024-04-14 23:50] LABS: CREATININE 1.2 mg/dL (0.6-1.0); GLUCOSE 101 mg/dL (70-105); UREA NITROGEN BLOOD 18 mg/dL (9-23)
[2024-04-15 00:12] LABS: ETHANOL BLOOD < 10 mg/dL (<10)
[2024-04-15 00:13] LABS: TROPONIN I HIGH SENSITIVITY 85 ng/L (3.0-34)
[2024-04-15] MEDS: ENOXAPARIN 60MG/0.6ML SYR SUBCUT NR (00:30)
[2024-04-15] MEDS: ASPIRIN 325MG EC TABLET PO NR (00:30)
[2024-04-15] MEDS: NITROGLYCERIN 0.2MG/HR PATCH TOP NR (00:30)
[2024-04-15] MEDS: FUROSEMIDE 40MG/4ML VIAL IVP NR (00:30)
[2024-04-15 02:07] LABS: TROPONIN I HIGH SENSITIVITY 88 ng/L (3.0-34)
[2024-04-15] MEDS ORDERED: ONDANSETRON HCL 4MG/2ML INJ IV PRN (10:00)
[2024-04-15] MEDS ORDERED: DIPHENHYDRAMINE 50MG/ML VIAL IV PRN (10:00)
[2024-04-15] MEDS: FUROSEMIDE 40MG/4ML VIAL IV SCH (11:27)
[2024-04-15] MEDS: CLONIDINE 0.1MG TABLET PO PRN (16:37)
[2024-04-15] MEDS ORDERED: IPRATROPIUM/ALBUTEROL 0.5-3(2.5)MG/3ML NEB HHN PRN (17:00)
[2024-04-15 18:30] VITALS: BP 121/93; PULSE 88; RESP 21; TEMP 36.89184; TEMP 36.9184; O2SAT 96
[2024-04-15 20:05] VITALS: BP 135/92; PULSE 95; RESP 24; TEMP 36.33624; O2SAT 100
[2024-04-15 22:10] VITALS: PULSE 88; RESP 20; O2SAT 98
[2024-04-15] MEDS: IPRATROPIUM/ALBUTEROL 0.5-3(2.5)MG/3ML NEB HHN SCH (22:10)
[2024-04-15] MEDS: IPRATROPIUM/ALBUTEROL 0.5-3(2.5)MG/3ML NEB HHN PRN (22:10)
[2024-04-15] MEDS ORDERED: ZOLPIDEM TARTRATE 5MG TABLET PO PRN (22:45)
[2024-04-15] MEDS: MELATONIN 3MG TABLET PO SCH (22:52)
[2024-04-15] MEDS: SIMETHICONE 80MG TABLET CHEW PO PRN (22:53)
[2024-04-16] VITALS (9 sets, daily range): BP systolic 118–136; BP diastolic 84–104; PULSE 83–106; RESP 12–34; TEMP 36.05844–36.72516; O2SAT 96–100
[2024-04-16] MEDS: ACETAMINOPHEN 325MG TABLET PO PRN (06:40)
[2024-04-16 07:31] LABS: POTASSIUM 4.9 mEq/L (3.5-5.1)
[2024-04-16 07:32] LABS: CALCIUM 9.3 mg/dL (8.7-10.4)
[2024-04-16 07:37] LABS: CREATININE 1.2 mg/dL (0.6-1.0)
[2024-04-16 07:38] LABS: BASOPHILS % 0.6 % (0.0-2.0); EOSINOPHILS % 0.4 % (0.0-5.0); HEMATOCRIT. 37.4 % (36.0-48.0); HEMOGLOBIN. 12.1 g/dL (12.0-16.0); LYMPHOCYTES % 25.5 % (20.0-50.0); MEAN CORPUSCULAR HEMOGLOBIN 30.2 pg (28.0-32.0); MEAN CORPUSCULAR HGB CONC 32.3 g/dL (31.0-37.0); MEAN CORPUSCULAR VOLUME 93.5 fL (81.0-99.0); MEAN PLATELET VOLUME 8.8 fl (7.4-10.4); MONOCYTES % 12.6 % (2.0-8.0); NEUTROPHILS % 60.9 % (40.0-76.0); PLATELET 285 x1000/uL (130-400); RED CELL DISTRIBUTION WIDTH 16.5 % (11.6-14.6)
[2024-04-16 12:18] LABS: *AMPHETAMINES SCREEN URINE NEGATIVE (NEGATIVE)
[2024-04-16 12:19] LABS: *BARBITURATES SCREEN URINE NEGATIVE (NEGATIVE); *BENZODIAZEPINES SCREEN URINE NEGATIVE (NEGATIVE); *COCAINE SCREEN URINE PRESUMPTIVE POSITIVE (NEGATIVE); CANNABINOID URINE SCREEN NEGATIVE (NEGATIVE); ECSTASY MDMA SCREEN URINE NEGATIVE (NEGATIVE); METHADONE URINE SCREEN NEGATIVE (NEGATIVE); OPIATES URINE SCREEN NEGATIVE (NEGATIVE); PHENCYCLIDINE URINE SCREEN PRESUMTIVE POSITIVE (NEGATIVE)
[2024-04-17] VITALS: BP 108/78; PULSE 92; RESP 26; TEMP 36.114; O2SAT 99
[2024-04-17 01:13] VITALS: PULSE 81; RESP 20; O2SAT 99
[2024-04-17 04:00] VITALS: BP 118/91; PULSE 99; RESP 24; TEMP 36.72516; O2SAT 99
[2024-04-17 05:02] VITALS: PULSE 86; RESP 20; O2SAT 92
[2024-04-17 08:00] VITALS: BP 126/79; PULSE 93; RESP 12; TEMP 36.83628; O2SAT 95
[2024-04-17 10:57] VITALS: BP 126/79; PULSE 93; TEMP 98.5; O2SAT 95
== END 2024-04-17 11:30 | disposition home or self-care (01) | DRG 194 ==
LOC: ER 22:44 → 5WST 04-15 00:49 → EDBEDREQ 04-15 00:53 → 5WST 04-15 11:00 → 3WST 04-15 18:22
PROVIDERS: ADMIT Family Medicine Adult Medicine; ATTEND Family Medicine Adult Medicine
DX: I11.0 Hypertensive heart disease with heart failure (principal); J96.01 Acute respiratory failure with hypoxia; I21.A1 Myocardial infarction type 2; F17.210 Nicotine dependence, cigarettes, uncomplicated; E78.5 Hyperlipidemia, unspecified; F19.10 Other psychoactive substance abuse, uncomplicated; K21.9 Gastro-esophageal reflux disease without esophagitis; Z91.148 Patient's other noncompliance with medication regimen for other reason; I50.23 Acute on chronic systolic (congestive) heart failure; Z79.899 Other long term (current) drug therapy; Z79.84 Long term (current) use of oral hypoglycemic drugs; Z79.82 Long term (current) use of aspirin
CPT/HCPCS: 36415; 71045; 80048; 80305; 80320; 83880; 84484; 85025; 93005; 93306; 93970; 94640; 99285; J1650; J1940; G0480

== ENCOUNTER 2024-07-17 14:35 | Emergency (ER) | payer OTHER ==
[~2024-07-17] VITALS: Ht 160 cm; Wt 70.0 kg
[~2024-07-17 14:35] MED LIST changes: -ALBU18HF2 IH; -ASPI-1497 MT; -EMPA10TA PO; -LOSA25TA26 PO; +NITR-87 MT
[2024-07-17 14:39] VITALS: O2SAT 100
[2024-07-17] MEDS ORDERED: IPRATROPIUM BROMIDE (0.02%) 0.5MG/2.5ML NEB HHN STA (14:48)
[2024-07-17] MEDS ORDERED: ALBUTEROL (0.083%) 2.5MG/3ML NEB HHN STA ×2 (14:48→19:13)
[2024-07-17 15:45] LABS: BASOPHILS % 1.3 % (0.0-2.0); EOSINOPHILS % 1.9 % (0.0-5.0); HEMATOCRIT. 40.7 % (36.0-48.0); HEMOGLOBIN. 12.5 g/dL (12.0-16.0); LYMPHOCYTES % 10.4 % (20.0-50.0); MEAN CORPUSCULAR HEMOGLOBIN 26.8 pg (28.0-32.0); MEAN CORPUSCULAR HGB CONC 30.7 g/dL (31.0-37.0); MEAN CORPUSCULAR VOLUME 87.3 fL (81.0-99.0); MONOCYTES % 10.2 % (2.0-8.0); NEUTROPHILS % 76.2 % (40.0-76.0); PLATELET 236 x1000/uL (130-400); RED BLOOD CELL COUNT 4.66 mill/uL (4.2-5.4); RED CELL DISTRIBUTION WIDTH 23.2 % (11.6-14.6); WHITE BLOOD COUNT 6.8 x1000/uL (4.5-11.0)
[2024-07-17 15:48] LABS: DIFFERENTIAL COMMENT 1
[2024-07-17 15:49] LABS: ADD RBC MORPHOLOGY YES
[2024-07-17 15:50] LABS: CHLORIDE 100 mEq/L (98-107); POTASSIUM 4.8 mEq/L (3.5-5.1); SODIUM 133 mEq/L (136-145)
[2024-07-17 15:51] LABS: CARBON DIOXIDE 24 mEq/L (21-32)
[2024-07-17 15:56] LABS: CREATININE 1.3 mg/dL (0.6-1.0); GLUCOSE 98 mg/dL (70-105); UREA NITROGEN BLOOD 24 mg/dL (9-23)
[2024-07-17] MEDS: METHYLPREDNISOLONE SOD SUCC 125MG/2ML (ACT-O-VIAL) IV STA (16:10)
[2024-07-17 16:18] LABS: TROPONIN I HIGH SENSITIVITY 56 ng/L (3.0-34)
[2024-07-17] MEDS: AZITHROMYCIN 500 MG TABLET PO STA (16:25)
[2024-07-17] MEDS: FAMOTIDINE 20MG TABLET PO ONE (16:25)
[2024-07-17] MEDS: ONDANSETRON HCL 4MG/2ML INJ IV STA (16:25)
[2024-07-17] MEDS: MAGNESIUM 2 G PREMIX 50 ML IV STA (16:33)
[2024-07-17 18:21] VITALS: TEMP 36.94740
[2024-07-17 18:32] LABS: PLATELET ESTIMATE NORMAL
[2024-07-17 18:33] LABS: ANISOCYTOSIS 3+; OVALOCYTES 1+
[2024-07-17] MEDS ORDERED: LOSA25TA26 PO (19:55)
[2024-07-17] MEDS ORDERED: EMPA10TA PO (19:55)
[2024-07-17] MEDS ORDERED: CARV3.1242 PO (19:55)
[2024-07-17] MEDS ORDERED: ASPI-1406 PO (19:55)
[2024-07-17] MEDS ORDERED: CLONIDINE 0.1MG TABLET PO PRN (20:00)
[2024-07-17] MEDS ORDERED: IPRATROPIUM/ALBUTEROL 0.5-3(2.5)MG/3ML NEB HHN SCH (20:00)
[2024-07-17] MEDS ORDERED: ACETAMINOPHEN 325MG TABLET PO PRN (20:00)
[2024-07-17] MEDS ORDERED: ONDANSETRON HCL 4MG/2ML INJ IV PRN (20:00)
[2024-07-17] MEDS ORDERED: IPRATROPIUM BROMIDE (0.02%) 0.5MG/2.5ML NEB HHN SCH (20:00)
[2024-07-17] MEDS ORDERED: BUDESONIDE 0.5MG/2ML NEB HHN SCH (20:00)
[2024-07-17] MEDS ORDERED: METHYLPREDNISOLONE SOD SUCC 40MG/ML (ACT-O-VIAL) IV SCH (20:00)
[2024-07-17] MEDS ORDERED: MAGNESIUM/ALUMINUM HYDROXIDE/SIMETHICONE 30ML UDC PO PRN (20:00)
[2024-07-17 20:42] VITALS: BP 106/76; PULSE 89; RESP 18; O2SAT 98
[2024-07-17] MEDS ORDERED: ATORVASTATIN CALCIUM 40MG TABLET PO SCH (21:00)
[2024-07-17] MEDS ORDERED: FAMOTIDINE 20MG TABLET PO SCH (21:00)
[2024-07-17] MEDS ORDERED: CARVEDILOL 3.125 MG TABLET PO SCH (21:00)
[2024-07-17] MEDS ORDERED: ENOXAPARIN 40MG/0.4ML SYR SUBCUT SCH (21:00)
[2024-07-17 21:15] LABS: D-DIMER 2.53 mg/L FEU (<0.50); INR 1.3; PROTHROMBIN TIME 13.9 sec (9.6-11.0)
[2024-07-18] MEDS ORDERED: FUROSEMIDE 40MG/4ML VIAL IV SCH (09:00)
[2024-07-18] MEDS ORDERED: ASPIRIN 81MG EC TABLET PO SCH (09:00)
[2024-07-18] MEDS ORDERED: EMPAGLIFLOZIN 10MG TABLET PO SCH (09:00)
[2024-07-18] MEDS ORDERED: LOSARTAN 25 MG TABLET PO SCH (09:00)
[2024-07-18] MEDS ORDERED: CEFTRIAXONE 1GM/50ML 50 ML IV SCH (21:00)
[2024-07-18] MEDS ORDERED: AZITHROMYCIN 500MG/250ML 250 ML IV SCH (22:00)
== END 2024-07-17 21:17 | disposition short-term general hospital (02) ==
LOC: ER 14:44 → EDBEDREQ 19:19 → EDBEDREQTM 19:19 → CANBEDREQ 21:02 → ER 21:17
DX: J44.1 Chronic obstructive pulmonary disease with (acute) exacerbation (principal); I21.4 Non-ST elevation (NSTEMI) myocardial infarction; I11.0 Hypertensive heart disease with heart failure; I25.2 Old myocardial infarction; Z79.899 Other long term (current) drug therapy
CPT/HCPCS: 80048; 83880; 85025; 85379; 85610; 84484; 36415; 71045; 93005; 96365; 96375; 99285; J3475; J2919; J2405; Z7610 ×5

== ENCOUNTER 2024-08-23 09:12 | Emergency (ER) | payer OTHER ==
[~2024-08-23] VITALS: Ht 162.6 cm; Wt 72.0 kg
[~2024-08-23 09:12] MED LIST changes: +APIX5TAB MT; +CARV3.1242 PO; -COR3 PO; +EMPA10TA PO; +LOSA25TA26 PO; -NITR-87 MT
[2024-08-23] MEDS: METHYLPREDNISOLONE SOD SUCC 125MG/2ML (ACT-O-VIAL) IV STA (09:51)
[2024-08-23 10:37] VITALS: BP 137/76; TEMP 36.7; O2SAT 96
[2024-08-23] MEDS: IPRATROPIUM BROMIDE (0.02%) 0.5MG/2.5ML NEB HHN STA (10:42)
[2024-08-23] MEDS: ALBUTEROL (0.083%) 2.5MG/3ML NEB HHN SCH (10:43)
[2024-08-23 10:48] VITALS: PULSE 94; RESP 20; O2SAT 99
== END 2024-08-23 11:51 | disposition left against medical advice (07) ==
LOC: ER 09:35 → CANBEDREQ 11:51
DX: R06.02 Shortness of breath (principal); I11.0 Hypertensive heart disease with heart failure; I50.9 Heart failure, unspecified; J44.89 Other specified chronic obstructive pulmonary disease; Z79.01 Long term (current) use of anticoagulants; Z79.82 Long term (current) use of aspirin; Z79.84 Long term (current) use of oral hypoglycemic drugs; Z79.899 Other long term (current) drug therapy; Z86.711 Personal history of pulmonary embolism
CPT/HCPCS: 71045; 94640; 93005; 94070; 96374; 99291; J2919; Z7610 ×3

== ENCOUNTER 2024-08-24 05:30 | Emergency (ER) | payer OTHER ==
[~2024-08-24] VITALS: Ht 167.6 cm; Wt 68.0 kg
[2024-08-24 05:35] VITALS: O2SAT 100
[2024-08-24] MEDS: ACETAMINOPHEN 325MG TABLET PO ONE (06:31)
[2024-08-24 06:38] LABS: CHLORIDE 102 mEq/L (98-107); POTASSIUM 4.4 mEq/L (3.5-5.1); SODIUM 137 mEq/L (136-145)
[2024-08-24 06:39] LABS: CARBON DIOXIDE 20 mEq/L (21-32)
[2024-08-24 06:40] LABS: CALCIUM 9.8 mg/dL (8.7-10.4)
[2024-08-24 06:44] LABS: GLUCOSE 143 mg/dL (70-105); UREA NITROGEN BLOOD 23 mg/dL (9-23)
[2024-08-24 06:57] LABS: TROPONIN I HIGH SENSITIVITY 43 ng/L (3.0-34)
[2024-08-24 07:10] LABS: BASOPHILS % 0.1 % (0.0-2.0); HEMATOCRIT. 39.8 % (36.0-48.0); HEMOGLOBIN. 12.3 g/dL (12.0-16.0); LYMPHOCYTES % 9.3 % (20.0-50.0); MEAN CORPUSCULAR VOLUME 87.1 fL (81.0-99.0); MEAN PLATELET VOLUME 8.9 fl (7.4-10.4); MONOCYTES % 8.6 % (2.0-8.0); PLATELET 301 x1000/uL (130-400); RED BLOOD CELL COUNT 4.57 mill/uL (4.2-5.4); RED CELL DISTRIBUTION WIDTH 20.8 % (11.6-14.6); WHITE BLOOD COUNT 9.7 x1000/uL (4.5-11.0)
[2024-08-24] MEDS: METHYLPREDNISOLONE SOD SUCC 125MG/2ML (ACT-O-VIAL) IV STA (09:13)
[2024-08-24] MEDS: FUROSEMIDE 40MG/4ML VIAL IVP ONE (09:13)
[2024-08-24 09:20] VITALS: PULSE 102; RESP 24
[2024-08-24] MEDS: ALBUTEROL (0.083%) 2.5MG/3ML NEB HHN STA (09:20)
[2024-08-24] MEDS: IPRATROPIUM BROMIDE (0.02%) 0.5MG/2.5ML NEB HHN STA (09:20)
[2024-08-24 11:10] VITALS: BP 141/97; PULSE 103; RESP 21; TEMP 36.9; O2SAT 94
== END 2024-08-24 11:48 | disposition short-term general hospital (02) ==
LOC: ER 05:30
DX: J44.1 Chronic obstructive pulmonary disease with (acute) exacerbation (principal); R07.9 Chest pain, unspecified; I50.9 Heart failure, unspecified; I11.0 Hypertensive heart disease with heart failure; F14.90 Cocaine use, unspecified, uncomplicated; Z79.899 Other long term (current) drug therapy
CPT/HCPCS: 80048; 83880; 85025; 84484; 36415; 71045; 93005; 94644; 96374; 99285; J1940; J2919; Z7610 ×3; 94070; 94640; A4606

== ENCOUNTER 2024-08-31 03:51 | Emergency (ER) | payer OTHER ==
[~2024-08-31] VITALS: Ht 167.6 cm; Wt 69.0 kg
[2024-08-31] MEDS ORDERED: METHYLPREDNISOLONE 40MG/ML INJ IV ONE (04:30)
[2024-08-31 04:35] VITALS: BP 140/92; TEMP 37; O2SAT 98
[2024-08-31] MEDS ORDERED: METHYLPREDNISOLONE SOD SUCC 125MG/2ML (ACT-O-VIAL) IV NR (05:15)
[2024-08-31 05:45] LABS: BASOPHILS % 0.3 % (0.0-2.0); EOSINOPHILS % 0.2 % (0.0-5.0); HEMATOCRIT. 42.6 % (36.0-48.0); HEMOGLOBIN. 13.3 g/dL (12.0-16.0); LYMPHOCYTES % 14.9 % (20.0-50.0); MEAN CORPUSCULAR HEMOGLOBIN 26.9 pg (28.0-32.0); MEAN CORPUSCULAR HGB CONC 31.2 g/dL (31.0-37.0); MEAN CORPUSCULAR VOLUME 86.4 fL (81.0-99.0); MEAN PLATELET VOLUME 8.5 fl (7.4-10.4); MONOCYTES % 12.5 % (2.0-8.0); NEUTROPHILS % 72.1 % (40.0-76.0); PLATELET 272 x1000/uL (130-400); RED BLOOD CELL COUNT 4.93 mill/uL (4.2-5.4); RED CELL DISTRIBUTION WIDTH 20.4 % (11.6-14.6); WHITE BLOOD COUNT 8.1 x1000/uL (4.5-11.0)
[2024-08-31 05:51] LABS: CHLORIDE 102 mEq/L (98-107); POTASSIUM 3.8 mEq/L (3.5-5.1); SODIUM 136 mEq/L (136-145)
[2024-08-31 05:52] LABS: CALCIUM 8.9 mg/dL (8.7-10.4); CARBON DIOXIDE 24 mEq/L (21-32)
[2024-08-31 05:57] LABS: CREATININE 1.1 mg/dL (0.6-1.0); GLUCOSE 126 mg/dL (70-105); UREA NITROGEN BLOOD 23 mg/dL (9-23)
[2024-08-31 05:59] LABS: TROPONIN I HIGH SENSITIVITY 32 ng/L (3.0-34)
[2024-08-31 06:43] LABS: DIFFERENTIAL COMMENT 1
[2024-08-31 13:15] VITALS: PULSE 84; RESP 20
[2024-08-31] MEDS: IPRATROPIUM/ALBUTEROL 0.5-3(2.5)MG/3ML NEB HHN STA (13:26)
[2024-08-31] MEDS: IPRATROPIUM/ALBUTEROL 0.5-3(2.5)MG/3ML NEB HHN ONE (13:26)
[2024-08-31] MEDS: FUROSEMIDE 40MG TABLET PO ONE (13:32)
== END 2024-08-31 14:03 | disposition home or self-care (01) ==
LOC: ER 03:51
DX: I11.0 Hypertensive heart disease with heart failure (principal); I50.9 Heart failure, unspecified; J44.9 Chronic obstructive pulmonary disease, unspecified; F14.90 Cocaine use, unspecified, uncomplicated; Z79.899 Other long term (current) drug therapy; Z79.84 Long term (current) use of oral hypoglycemic drugs; Z79.01 Long term (current) use of anticoagulants
CPT/HCPCS: 80048; 83880; 85025; 84484; 36415; 71045; 94640; 93005; 99285; Z7610 ×3; J2920

== ENCOUNTER 2024-09-10 13:04 | Inpatient (IN) | payer OTHER ==
[~2024-09-10] VITALS: Ht 157.5 cm; Wt 58.5 kg
[2024-09-10] MEDS: NITROGLYCERIN 0.4MG TABLET SL SL PRN (14:30)
[2024-09-10] MEDS: ASPIRIN 81MG TABLET PO ONE (14:30)
[2024-09-10] MEDS: FUROSEMIDE 40MG/4ML VIAL IV ONE (14:30)
[2024-09-10 16:58] LABS: BASOPHILS % 0.4 % (0.0-2.0); HEMATOCRIT. 41.1 % (36.0-48.0); HEMOGLOBIN. 13.1 g/dL (12.0-16.0); LYMPHOCYTES % 10.5 % (20.0-50.0); MEAN CORPUSCULAR HEMOGLOBIN 26.8 pg (28.0-32.0); MONOCYTES % 8.8 % (2.0-8.0); NEUTROPHILS % 80.3 % (40.0-76.0); PLATELET 339 x1000/uL (130-400); RED BLOOD CELL COUNT 4.89 mill/uL (4.2-5.4); RED CELL DISTRIBUTION WIDTH 20.4 % (11.6-14.6); WHITE BLOOD COUNT 9.2 x1000/uL (4.5-11.0)
[2024-09-10 17:00] LABS: DIFFERENTIAL COMMENT 1
[2024-09-10 17:04] LABS: CHLORIDE 101 mEq/L (98-107); POTASSIUM 4.3 mEq/L (3.5-5.1); SODIUM 137 mEq/L (136-145)
[2024-09-10 17:05] LABS: CALCIUM 9.5 mg/dL (8.7-10.4); CARBON DIOXIDE 21 mEq/L (21-32)
[2024-09-10 17:10] LABS: CREATININE 1.3 mg/dL (0.6-1.0); GLUCOSE 125 mg/dL (70-105); UREA NITROGEN BLOOD 41 mg/dL (9-23)
[2024-09-10 17:21] LABS: TROPONIN I HIGH SENSITIVITY 52 ng/L (3.0-34)
[2024-09-10 22:28] VITALS: BP 112/73; PULSE 96; RESP 18; TEMP 37.1
[2024-09-10] MEDS ORDERED: ASPI-1497 PO (23:15)
[2024-09-11] VITALS: BP 112/73; PULSE 96; RESP 20; TEMP 37.1; O2SAT 99
[2024-09-11] MEDS ORDERED: HYDROCODONE/ACETAMINOPHEN 10/325MG TABLET PO PRN (02:45)
[2024-09-11] MEDS ORDERED: ZOLPIDEM TARTRATE 5MG TABLET PO PRN (02:45)
[2024-09-11] MEDS ORDERED: NALOXONE HCL 0.4MG/ML VIAL IV PRN (03:00)
[2024-09-11 04:00] VITALS: BP 112/72; PULSE 94; RESP 20; TEMP 37.1; O2SAT 100
[2024-09-11 08:00] VITALS: BP 122/89; PULSE 92; RESP 20; TEMP 36.6; O2SAT 100
[2024-09-11] MEDS: FAMOTIDINE 20MG TABLET PO SCH (09:29)
[2024-09-11] MEDS: ASPIRIN 81MG TABLET PO SCH (09:29)
[2024-09-11] MEDS: LOSARTAN 50 MG TABLET PO SCH (09:30)
[2024-09-11] MEDS: APIXABAN 5 MG TABLET PO SCH (09:30)
[2024-09-11] MEDS: CARVEDILOL 3.125 MG TABLET PO SCH (09:30)
[2024-09-11] MEDS: SPIRONOLACTONE 25MG TABLET PO SCH (09:31)
[2024-09-11] MEDS: FUROSEMIDE 40MG/4ML VIAL IVP SCH (09:31)
[2024-09-11 12:00] VITALS: BP 130/86; PULSE 86; RESP 18; TEMP 36.8; O2SAT 96
[2024-09-11] MEDS ORDERED: IPRATROPIUM/ALBUTEROL 0.5-3(2.5)MG/3ML NEB HHN PRN (13:30)
[2024-09-11 16:00] VITALS: BP 128/88; PULSE 89; RESP 20; TEMP 36.6; O2SAT 99
[2024-09-11] MEDS: METOLAZONE 2.5MG TABLET PO NR (17:49)
[2024-09-11 18:20] VITALS: BP 124/86; PULSE 86; TEMP 97.9; O2SAT 99
[2024-09-11] MEDS ORDERED: ATORVASTATIN CALCIUM 40MG TABLET PO SCH (21:00)
== END 2024-09-11 21:00 | disposition home or self-care (01) | DRG 194 ==
LOC: ER 13:04 → 8WST 17:40
PROVIDERS: ADMIT Internal Medicine; ATTEND Internal Medicine
DX: I11.0 Hypertensive heart disease with heart failure (principal); J96.20 Acute and chronic respiratory failure, unspecified whether with hypoxia or hypercapnia; I42.9 Cardiomyopathy, unspecified; I50.23 Acute on chronic systolic (congestive) heart failure; F14.90 Cocaine use, unspecified, uncomplicated; F17.210 Nicotine dependence, cigarettes, uncomplicated; J44.9 Chronic obstructive pulmonary disease, unspecified; Z99.81 Dependence on supplemental oxygen; Z86.711 Personal history of pulmonary embolism; Z86.718 Personal history of other venous thrombosis and embolism
CPT/HCPCS: 36415; 71045; 78580; 80048; 83880; 84484; 85025; 93005; 93970; 99285; A4606; J1940

== ENCOUNTER 2024-09-16 08:52 | Emergency (ER) | payer OTHER ==
[~2024-09-16] VITALS: Ht 157.5 cm; Wt 70.0 kg
[~2024-09-16 08:52] MED LIST changes: +ASPI-1497 PO
[2024-09-16 09:00] VITALS: O2SAT 96
[2024-09-16] MEDS: ACETAMINOPHEN WITH CODEINE 300/30MG TABLET PO ONE (09:54)
[2024-09-16 11:35] LABS: BASOPHILS % 0.4 % (0.0-2.0); DIFFERENTIAL COMMENT 0; EOSINOPHILS % 0.1 % (0.0-5.0); HEMOGLOBIN. 13.6 g/dL (12.0-16.0); LYMPHOCYTES % 8.4 % (20.0-50.0); MEAN CORPUSCULAR HEMOGLOBIN 26.6 pg (28.0-32.0); MEAN CORPUSCULAR HGB CONC 30.2 g/dL (31.0-37.0); MEAN CORPUSCULAR VOLUME 88.2 fL (81.0-99.0); MEAN PLATELET VOLUME 8.6 fl (7.4-10.4); MONOCYTES % 7.7 % (2.0-8.0); NEUTROPHILS % 83.4 % (40.0-76.0); PLATELET 282 x1000/uL (130-400); RED CELL DISTRIBUTION WIDTH 21.1 % (11.6-14.6); WHITE BLOOD COUNT 13.5 x1000/uL (4.5-11.0)
[2024-09-16 13:03] VITALS: BP 117/76; PULSE 98; RESP 18; TEMP 36.8; O2SAT 98
[2024-09-16 13:10] LABS: CHLORIDE 101 mEq/L (98-107); SODIUM 140 mEq/L (136-145)
[2024-09-16 13:11] LABS: CALCIUM 8.9 mg/dL (8.7-10.4); CARBON DIOXIDE 27 mEq/L (21-32)
[2024-09-16 13:16] LABS: CREATININE 0.9 mg/dL (0.6-1.0); GLUCOSE 166 mg/dL (70-105); UREA NITROGEN BLOOD 19 mg/dL (9-23)
== END 2024-09-16 13:45 | disposition short-term general hospital (02) ==
LOC: ER 08:52
DX: M25.561 Pain in right knee (principal); I11.0 Hypertensive heart disease with heart failure; I50.9 Heart failure, unspecified; J44.9 Chronic obstructive pulmonary disease, unspecified; F10.90 Alcohol use, unspecified, uncomplicated; F14.90 Cocaine use, unspecified, uncomplicated; Z79.01 Long term (current) use of anticoagulants; Z79.84 Long term (current) use of oral hypoglycemic drugs; Z79.899 Other long term (current) drug therapy; Y90.9 Presence of alcohol in blood, level not specified
CPT/HCPCS: 80048; 85025; 36415; 73562; 99285; Z7610

== ENCOUNTER 2024-12-25 22:15 | Inpatient (IN) | payer OTHER ==
[~2024-12-25] VITALS: Ht 157.5 cm; Wt 71.3 kg
[~2024-12-25 22:15] MED LIST changes: -CARV3.1242 PO; +COLC0.6C3 MT; +COR6 PO; +GABA-1180 PO; +SPIR25TA PO; -SPIR25TA6 PO
[2024-12-25] MEDS: ASPIRIN 81MG TABLET PO ONE (22:40)
[2024-12-25] MEDS: NITROGLYCERIN 0.4MG TABLET SL SL PRN (22:41)
[2024-12-25] MEDS: FUROSEMIDE 40MG/4ML VIAL IV ONE (23:11)
[2024-12-26 02:20] VITALS: BP 141/87; PULSE 123; RESP 20; TEMP 36.2
[2024-12-26] MEDS ORDERED: ACETAMINOPHEN 325MG TABLET PO PRN (03:30)
[2024-12-26] MEDS ORDERED: CLONIDINE 0.1MG TABLET PO PRN (03:30)
[2024-12-26] MEDS ORDERED: GUAIFENESIN 200MG/10ML SUGAR FREE UDC PO PRN (03:30)
[2024-12-26] MEDS: MORPHINE SULFATE 4 MG/ML INJ (FOR IV/IM USE) IV PRN (03:58)
[2024-12-26] MEDS: LORAZEPAM 2MG/ML UD SYRINGE IV ONE (03:58)
[2024-12-26 04:00] VITALS: BP 120/93; PULSE 116; RESP 20; TEMP 36.2; O2SAT 100
[2024-12-26 06:05] LABS: *AMPHETAMINES SCREEN URINE NEGATIVE (NEGATIVE); *BENZODIAZEPINES SCREEN URINE NEGATIVE (NEGATIVE)
[2024-12-26 06:06] LABS: *BARBITURATES SCREEN URINE NEGATIVE (NEGATIVE); *COCAINE SCREEN URINE PRESUMPTIVE POSITIVE (NEGATIVE); CANNABINOID URINE SCREEN NEGATIVE (NEGATIVE); CLARITY URINE CLEAR (CLEAR); COLOR URINE YELLOW (YELLOW); ECSTASY MDMA SCREEN URINE NEGATIVE (NEGATIVE); GLUCOSE URINE NEGATIVE (NEGATIVE); KETONES URINE NEGATIVE (NEGATIVE); LEUKOCYTE ESTERASE URINE NEGATIVE (NEGATIVE); METHADONE URINE SCREEN NEGATIVE (NEGATIVE); NITRITE URINE NEGATIVE (NEGATIVE); OCCULT BLOOD URINE NEGATIVE (NEGATIVE); OPIATES URINE SCREEN NEGATIVE (NEGATIVE); PHENCYCLIDINE URINE SCREEN NEGATIVE (NEGATIVE); PROTEIN URINE NEGATIVE (NEGATIVE); SPECIFIC GRAVITY URINE 1.008 (1.005-1.030)
[2024-12-26] MEDS: BLOOD SUGAR DIAGNOSTIC STRIP TEST SCH (06:07)
[2024-12-26] MEDS: DEXTROSE 50% WATER 50ML SYRINGE IV PRN (06:07)
[2024-12-26 08:00] VITALS: BP 127/87; PULSE 116; RESP 18; TEMP 36.6; O2SAT 98
[2024-12-26 08:24] LABS: HEMATOCRIT. 33.7 % (36.0-48.0); HEMOGLOBIN. 10.6 g/dL (12.0-16.0); MEAN CORPUSCULAR HEMOGLOBIN 26.6 pg (28.0-32.0); MEAN CORPUSCULAR HGB CONC 31.5 g/dL (31.0-37.0); MEAN CORPUSCULAR VOLUME 84.4 fL (81.0-99.0); MEAN PLATELET VOLUME 8.6 fl (7.4-10.4); PLATELET 256 x1000/uL (130-400); RED BLOOD CELL COUNT 3.99 mill/uL (4.2-5.4); RED CELL DISTRIBUTION WIDTH 19.7 % (11.6-14.6); WHITE BLOOD COUNT 7.2 x1000/uL (4.5-11.0)
[2024-12-26 08:36] LABS: DIFFERENTIAL COMMENT 1
[2024-12-26 08:46] LABS: CHLORIDE 101 mEq/L (98-107); POTASSIUM 4.1 mEq/L (3.5-5.1); SODIUM 136 mEq/L (136-145)
[2024-12-26 08:48] LABS: CARBON DIOXIDE 26 mEq/L (21-32)
[2024-12-26 08:49] LABS: CALCIUM 9.6 mg/dL (8.7-10.4)
[2024-12-26 08:52] LABS: CREATINE KINASE MB FRACTION 1.5 ng/mL (0.5-3.6)
[2024-12-26 08:53] LABS: CREATININE 1.1 mg/dL (0.6-1.0); GLUCOSE 117 mg/dL (70-105)
[2024-12-26 08:54] LABS: CREATINE KINASE 189 IU/L (34-145); UREA NITROGEN BLOOD 20 mg/dL (9-23)
[2024-12-26 08:55] LABS: ALANINE AMINOTRANSFERASE 15 IU/L (10-49); ALBUMIN 4.1 g/dL (3.2-4.8); ASPARTATE AMINOTRANSFERASE 27 IU/L (<34)
[2024-12-26 08:56] LABS: BILIRUBIN TOTAL 1.1 mg/dL (0.1-1.0); PHOSPHORUS 3.6 mg/dL (2.5-4.9); PROTEIN TOTAL 6.7 g/dL (6.0-8.3)
[2024-12-26] MEDS: EMPAGLIFLOZIN 10MG TABLET PO SCH (09:00)
[2024-12-26] MEDS: FUROSEMIDE 40MG/4ML VIAL IVP SCH (09:17)
[2024-12-26] MEDS: PANTOPRAZOLE SODIUM 40 MG/VIAL IV SCH (09:17)
[2024-12-26] MEDS: METOLAZONE 2.5MG TABLET PO SCH (09:29)
[2024-12-26 09:36] LABS: TROPONIN I HIGH SENSITIVITY 43 ng/L (3.0-34)
[2024-12-26 09:51] LABS: BG BASE EXCESS 1.4 mmol/L (-2.0-3.0); BG CARBOXYHEMOGLOBIN 0.9 % (0.5-1.5); BG DEOXYHEMOGLOBIN 0.3 % (0.0-5.0); BG FRACTION INSPIRED OXYGEN 36; BG HCO3 ACT 24.6 mmol/L (21.0-28.0); BG OXYGEN SATURATION 99.7 % (94.0-98.0); BG OXYHEMOGLOBIN 98.8 % (94.0-98.0); BG PCO2 34.2 mmHg (32.0-45.0); BG PH 7.475 (7.350-7.450); BG PO2 167.2 mmHg (83.0-108.0); BG SAMPLE SITE RIGHT RADIAL; BG TOTAL HEMOGLOBIN 11.4 g/dL (12.0-16.0); BG VENT MODE NASAL CANNULA
[2024-12-26] MEDS: ENOXAPARIN 40MG/0.4ML SYR SUBCUT SCH (10:00)
[2024-12-26 11:10] LABS: ANISOCYTOSIS 1+
[2024-12-26 11:11] LABS: PLATELET ESTIMATE NORMAL
[2024-12-26 12:00] VITALS: BP 134/88; PULSE 111; RESP 18; TEMP 36.7; O2SAT 98
[2024-12-26 16:00] VITALS: BP 123/82; PULSE 111; RESP 18; TEMP 36.7; O2SAT 98
[2024-12-26 16:45] LABS: CREATINE KINASE MB FRACTION 0.7 ng/mL (0.5-3.6)
[2024-12-26 20:00] VITALS: BP 108/67; PULSE 94; RESP 17; TEMP 36.3; O2SAT 96
[2024-12-26] MEDS: ACETAMINOPHEN 325MG TABLET PO PRN (21:27)
[2024-12-26] MEDS: DOCUSATE SODIUM 100MG CAPSULE PO PRN (22:02)
[2024-12-26] MEDS: MAGNESIUM/ALUMINUM HYDROXIDE/SIMETHICONE 30ML UDC PO PRN (22:02)
[2024-12-26] MEDS: DIPHENHYDRAMINE 50MG/ML VIAL IV SCH (22:03)
[2024-12-27] VITALS (7 sets, daily range): BP systolic 118–159; BP diastolic 56–87; PULSE 86–105; RESP 17–20; TEMP 36.2–36.7; O2SAT 95–100
[2024-12-27] MEDS: IPRATROPIUM/ALBUTEROL 0.5-3(2.5)MG/3ML NEB HHN PRN (05:49)
[2024-12-27] MEDS: FUROSEMIDE 40MG/4ML VIAL IVP SCH (09:46)
[2024-12-27] MEDS ORDERED: NON FORMULARY MED XX SCH (23:30)
[2024-12-27] MEDS: MELATONIN 3MG TABLET PO PRN (23:40)
[2024-12-27] MEDS: GABAPENTIN 100MG CAPSULE PO NR (23:40)
[2024-12-28] VITALS: BP 126/87; PULSE 106; RESP 19; TEMP 36.7; O2SAT 100
[2024-12-28] MEDS: ONDANSETRON HCL 4MG/2ML INJ IV PRN (01:15)
[2024-12-28 04:00] VITALS: BP 123/98; PULSE 107; RESP 19; TEMP 36.7; O2SAT 100
[2024-12-28 07:36] VITALS: BP 120/91; PULSE 108; RESP 18; TEMP 36.7; O2SAT 100
[2024-12-28 08:00] VITALS: BP 117/82; PULSE 92; RESP 17; TEMP 36.2; O2SAT 96
[2024-12-28] MEDS: FAMOTIDINE 20MG/2ML VIAL IV SCH (09:02)
[2024-12-29] MEDS ORDERED: SPIRONOLACTONE 12.5MG TABLET PO SCH (09:00)
[2024-12-29] MEDS ORDERED: LOSARTAN 25 MG TABLET PO SCH (09:00)
== END 2024-12-28 10:50 | disposition home or self-care (01) | DRG 194 ==
LOC: ER 22:15 → 6WST 12-26 00:50 → EDBEDREQ 12-26 00:53 → EDBEDREQSVC 12-26 00:53 → ENRESERV 12-26 01:15
PROVIDERS: ADMIT Internal Medicine; ATTEND Internal Medicine
DX: I11.0 Hypertensive heart disease with heart failure (principal); J96.01 Acute respiratory failure with hypoxia; I21.4 Non-ST elevation (NSTEMI) myocardial infarction; I50.23 Acute on chronic systolic (congestive) heart failure; E11.9 Type 2 diabetes mellitus without complications; F14.10 Cocaine abuse, uncomplicated; J44.9 Chronic obstructive pulmonary disease, unspecified; Z53.29 Procedure and treatment not carried out because of patient's decision for other reasons; Z79.899 Other long term (current) drug therapy; Z91.148 Patient's other noncompliance with medication regimen for other reason; Z79.01 Long term (current) use of anticoagulants; Z79.84 Long term (current) use of oral hypoglycemic drugs; Z79.4 Long term (current) use of insulin
CPT/HCPCS: 36415; 36600; 71045; 80053; 80305; 81003; 82375; 82550; 82553; 82805; 82962; 83735; 84100; 84484; 85025; 93005; 93970; 94640; 99291; J1200; J1308; J1650; J1940; J2060; J2270; J2405; J2470

== ENCOUNTER 2025-01-01 09:08 | Emergency (ER) | payer OTHER ==
[~2025-01-01] VITALS: Ht 167.6 cm; Wt 59.0 kg
[~2025-01-01 09:08] MED LIST changes: -COLC0.6C3 MT
[2025-01-01 09:12] VITALS: O2SAT 98
[2025-01-01] MEDS ORDERED: METHYLPREDNISOLONE SOD SUCC 125MG/2ML (ACT-O-VIAL) IV ONE (09:30)
[2025-01-01] MEDS: IPRATROPIUM/ALBUTEROL 0.5-3(2.5)MG/3ML NEB HHN ONE (09:40)
[2025-01-01] MEDS: ALBUTEROL (0.083%) 2.5MG/3ML NEB HHN ONE (09:45)
[2025-01-01] MEDS: PREDNISONE 20MG TABLET PO ONE (09:58)
[2025-01-01 11:00] VITALS: RESP 30
[2025-01-01] MEDS: FUROSEMIDE 40MG TABLET PO ONE (11:00)
[2025-01-01] MEDS: APIXABAN 5 MG TABLET PO STA (11:45)
[2025-01-01] MEDS: ASPIRIN 325MG EC TABLET PO ONE (11:45)
[2025-01-01] MEDS ORDERED: P50 MT (12:26)
[2025-01-01 13:30] VITALS: RESP 25
[2025-01-01 16:13] VITALS: BP 131/95; PULSE 106; RESP 20; TEMP 36.8; O2SAT 98
== END 2025-01-01 16:29 | disposition home or self-care (01) ==
LOC: ER 09:08 → EDBEDREQ 09:30 → ER 16:29
DX: I11.0 Hypertensive heart disease with heart failure (principal); I50.9 Heart failure, unspecified; J44.1 Chronic obstructive pulmonary disease with (acute) exacerbation; E11.9 Type 2 diabetes mellitus without complications; Z79.82 Long term (current) use of aspirin; Z79.899 Other long term (current) drug therapy; Z99.81 Dependence on supplemental oxygen
CPT/HCPCS: 94640; 93005; 99284; J7512; Z7610 ×3; 94070; 94660

== ENCOUNTER 2025-02-07 13:24 | Emergency (ER) | payer OTHER ==
[~2025-02-07] VITALS: Ht 162.6 cm; Wt 80.0 kg
[~2025-02-07 13:24] MED LIST changes: +P50 MT
[2025-02-07 13:27] VITALS: O2SAT 98
[2025-02-07] MEDS: KETOROLAC 15MG/ML VIAL IV ONE (14:07)
[2025-02-07] MEDS: HYDROCODONE/ACETAMINOPHEN 5/325MG TABLET PO ONE (14:07)
[2025-02-07 15:32] LABS: PLATELET 440 x1000/uL (130-400); RED BLOOD CELL COUNT 4.68 mill/uL (4.2-5.4); RED CELL DISTRIBUTION WIDTH 21.9 % (11.6-14.6)
[2025-02-07 15:49] LABS: CREATININE 1.1 mg/dL (0.6-1.0); UREA NITROGEN BLOOD 17 mg/dL (9-23)
[2025-02-07 16:00] VITALS: TEMP 36.8
[2025-02-07 22:47] VITALS: BP 125/77; PULSE 80; RESP 17; O2SAT 100
== END 2025-02-07 22:50 | disposition home or self-care (01) ==
LOC: ER 13:33
DX: M25.50 Pain in unspecified joint (principal); D72.829 Elevated white blood cell count, unspecified; E11.9 Type 2 diabetes mellitus without complications; I11.0 Hypertensive heart disease with heart failure; I50.9 Heart failure, unspecified; J44.9 Chronic obstructive pulmonary disease, unspecified; F17.200 Nicotine dependence, unspecified, uncomplicated; Z79.899 Other long term (current) drug therapy; Z79.84 Long term (current) use of oral hypoglycemic drugs; Z79.82 Long term (current) use of aspirin; Z79.01 Long term (current) use of anticoagulants
CPT/HCPCS: 80048; 85027; 36415; 96374; 99285; J1885; Z7610 ×2; A4606

== ENCOUNTER 2025-02-10 16:59 | Emergency (ER) | payer OTHER ==
[~2025-02-10] VITALS: Ht 157.5 cm; Wt 50.0 kg
[2025-02-10 17:04] VITALS: O2SAT 95
[2025-02-10 17:52] LABS: HEMOGLOBIN. 12.8 g/dL (12.0-16.0); RED CELL DISTRIBUTION WIDTH 22.6 % (11.6-14.6)
[2025-02-10 17:54] LABS: HEMATOCRIT. 40.5 % (36.0-48.0); MEAN PLATELET VOLUME 8.0 fl (7.4-10.4); PLATELET 380 x1000/uL (130-400); RED BLOOD CELL COUNT 5.27 mill/uL (4.2-5.4)
[2025-02-10] MEDS: KETOROLAC 30MG/ML VIAL IM ONE (18:01)
[2025-02-10 18:02] VITALS: BP 112/74; PULSE 92; RESP 18; TEMP 37.1; O2SAT 99
[2025-02-10 18:11] LABS: CREATININE 1.1 mg/dL (0.6-1.0); UREA NITROGEN BLOOD 21 mg/dL (9-23)
[2025-02-10 18:12] LABS: ASPARTATE AMINOTRANSFERASE 45 IU/L (<34)
[2025-02-10 18:13] LABS: BILIRUBIN DIRECT 1.0 mg/dL (<=3.0); BILIRUBIN TOTAL 1.5 mg/dL (0.1-1.0); PROTEIN TOTAL 6.8 g/dL (6.0-8.3)
[2025-02-10 18:17] LABS: LYMPHOCYTES % MANUAL 6.0 % (20.0-60.0); MONOCYTES % MANUAL 7.0 % (2.0-8.0); NEUTROPHILS % MANUAL 87.0 % (45.0-75.0); PLATELET ESTIMATE NORMAL
[2025-02-10] MEDS ORDERED: DICL100G58 TP (18:43)
[2025-02-10] MEDS: HYDROCODONE/ACETAMINOPHEN 5/325MG TABLET PO ONE (19:33)
[2025-02-13] MEDS ORDERED: DIGO125T PO (23:10)
[2025-02-13] MEDS ORDERED: ALLO100T PO (23:10)
[2025-02-15] MEDS ORDERED: APIX5TAB PO (14:54)
[2025-02-15] MEDS ORDERED: ATOR40TA70 PO (14:55)
[2025-02-15] MEDS ORDERED: EMPA10TA PO (14:58)
[2025-02-15] MEDS ORDERED: FURO80TA3 PO (15:07)
[2025-02-15] MEDS ORDERED: DOCU-422 PO (15:07)
== END 2025-02-10 20:28 | disposition home or self-care (01) ==
LOC: ER 16:59
DX: M19.90 Unspecified osteoarthritis, unspecified site (principal); I11.0 Hypertensive heart disease with heart failure; I50.9 Heart failure, unspecified; J44.9 Chronic obstructive pulmonary disease, unspecified; Z20.822 Contact with and (suspected) exposure to COVID-19; Z98.890 Other specified postprocedural states; Z79.899 Other long term (current) drug therapy; Z87.891 Personal history of nicotine dependence; Z79.82 Long term (current) use of aspirin
CPT/HCPCS: 80076; 80048; 83735; 85025; 71045; 73120; 73620; 96372; 99284; 87426; J1885; Z7610 ×3; A4606

== ENCOUNTER 2025-04-28 17:32 | Inpatient (IN) | payer OTHER ==
[~2025-04-28] VITALS: Ht 162.6 cm; Wt 59.7 kg
[~2025-04-28 17:32] MED LIST changes: +ALLO100T PO; -APIX5TAB MT; +APIX5TAB PO; +CARV12.545 MT; +CEFP200T13 MT; +COLC0.6C3 MT; -COR6 PO; +DIGO125T PO; +DOCU-422 PO; -FAMO20TA8 PO; -FURO40TA5 PO; +FURO80TA3 PO; +FURO80TA87 MT; +LOSA25TA26 MT; -P50 MT; +SPIR25TA6 MT
[2025-04-28] MEDS ORDERED: ALBUTEROL (0.083%) 2.5MG/3ML NEB HHN ONE (18:00)
[2025-04-28] MEDS: FUROSEMIDE 40MG/4ML VIAL IV ONE (18:21)
[2025-04-28] MEDS: DIPHENHYDRAMINE 50MG/ML VIAL IV ONE (18:21)
[2025-04-28 18:22] LABS: BG DEOXYHEMOGLOBIN 4.8 % (0.0-5.0)
[2025-04-28] MEDS: KETOROLAC 15MG/ML VIAL IV ONE (18:22)
[2025-04-28 20:13] LABS: BASOPHILS % 0.4 % (0.0-2.0); EOSINOPHILS % 0.5 % (0.0-5.0); HEMATOCRIT. 35.9 % (36.0-48.0); HEMOGLOBIN. 11.3 g/dL (12.0-16.0); LYMPHOCYTES % 15.1 % (20.0-50.0); MEAN PLATELET VOLUME 8.5 fl (7.4-10.4); MONOCYTES % 13.6 % (2.0-8.0); NEUTROPHILS % 70.4 % (40.0-76.0); PLATELET 293 x1000/uL (130-400); RED BLOOD CELL COUNT 4.25 mill/uL (4.2-5.4); RED CELL DISTRIBUTION WIDTH 26.2 % (11.6-14.6)
[2025-04-28 20:17] LABS: ADD RBC MORPHOLOGY YES
[2025-04-28 20:31] LABS: CREATININE 0.8 mg/dL (0.6-1.0); UREA NITROGEN BLOOD 8 mg/dL (9-23)
[2025-04-28 20:33] LABS: ASPARTATE AMINOTRANSFERASE 38 IU/L (<34); BILIRUBIN DIRECT 0.9 mg/dL (<=3.0)
[2025-04-28 20:34] LABS: BILIRUBIN TOTAL 2.2 mg/dL (0.1-1.0); PROTEIN TOTAL 6.6 g/dL (6.0-8.3); TROPONIN I HIGH SENSITIVITY 25 ng/L (3.0-34)
[2025-04-28 20:36] LABS: PLATELET ESTIMATE NORMAL
[2025-04-28] MEDS: ALBUTEROL (0.083%) 2.5MG/3ML NEB HHN ONE (21:38)
[2025-04-28 21:39] VITALS: PULSE 80; RESP 18; O2SAT 93
[2025-04-28] MEDS: LORAZEPAM 2MG/ML UD SYRINGE IV NR (22:59)
[2025-04-29 00:36] VITALS: BP 136/76; PULSE 101; RESP 20; TEMP 36.418
[2025-04-29] MEDS ORDERED: DEXTROSE 50% WATER 50ML SYRINGE IV PRN (02:15)
[2025-04-29] MEDS ORDERED: NALOXONE HCL 0.4MG/ML 1ML VIAL IV ONE (02:30)
[2025-04-29] MEDS ORDERED: ONDANSETRON HCL 4MG/2ML INJ IV PRN (02:30)
[2025-04-29 04:00] VITALS: BP 127/72; PULSE 95; RESP 20; TEMP 36.2; O2SAT 99
[2025-04-29] MEDS: GABAPENTIN 300MG CAPSULE PO SCH (05:21)
[2025-04-29] MEDS: BLOOD SUGAR DIAGNOSTIC STRIP TEST SCH (06:33)
[2025-04-29] MEDS: INSULIN LISPRO 100 UNITS/ML SUBCUT SCH (07:50)
[2025-04-29 08:00] VITALS: BP 132/74; PULSE 90; RESP 18; TEMP 36.7; O2SAT 98
[2025-04-29] MEDS: APIXABAN 5 MG TABLET PO SCH (09:02)
[2025-04-29] MEDS: ASPIRIN 81MG TABLET PO SCH (09:02)
[2025-04-29] MEDS: FUROSEMIDE 40MG TABLET PO SCH (09:03)
[2025-04-29] MEDS: CARVEDILOL 12.5MG TABLET PO SCH (09:03)
[2025-04-29] MEDS: SPIRONOLACTONE 25MG TABLET PO SCH (09:03)
[2025-04-29] MEDS: LOSARTAN 25 MG TABLET PO SCH (09:03)
[2025-04-29] MEDS: DOCUSATE SODIUM 100MG CAPSULE PO SCH (09:04)
[2025-04-29 13:31] LABS: BASOPHILS % 0.6 % (0.0-2.0); EOSINOPHILS % 1.4 % (0.0-5.0); HEMATOCRIT. 36.0 % (36.0-48.0); HEMOGLOBIN. 11.4 g/dL (12.0-16.0); LYMPHOCYTES % 16.2 % (20.0-50.0); MEAN PLATELET VOLUME 8.9 fl (7.4-10.4); MONOCYTES % 14.3 % (2.0-8.0); NEUTROPHILS % 67.5 % (40.0-76.0); PLATELET 262 x1000/uL (130-400); RED BLOOD CELL COUNT 4.28 mill/uL (4.2-5.4); RED CELL DISTRIBUTION WIDTH 25.4 % (11.6-14.6)
[2025-04-29 13:36] LABS: ADD RBC MORPHOLOGY NO
[2025-04-29 13:48] LABS: CREATININE 0.9 mg/dL (0.6-1.0); TRIGLYCERIDE 96 mg/dL (0-150); UREA NITROGEN BLOOD 14 mg/dL (9-23)
[2025-04-29 13:49] LABS: LDL CHOLESTEROL 55 mg/dL (5-100)
[2025-04-29] MEDS: HYDROCODONE/ACETAMINOPHEN 5/325MG TABLET PO PRN (15:18)
[2025-04-29 16:00] VITALS: BP 119/69; PULSE 85; RESP 18; TEMP 36.5; O2SAT 99
[2025-04-29] MEDS: METOLAZONE 2.5MG TABLET PO SCH (17:00)
[2025-04-29] MEDS: DIGOXIN 125MCG TABLET PO SCH (17:58)
[2025-04-29 20:00] VITALS: BP 111/79; PULSE 93; RESP 19; TEMP 36.3; O2SAT 98
[2025-04-29] MEDS: ATORVASTATIN CALCIUM 40MG TABLET PO SCH (22:26)
[2025-04-30] VITALS (8 sets, daily range): BP systolic 102–124; BP diastolic 69–79; PULSE 74–89; RESP 16–19; TEMP 35.9–36.6; O2SAT 98–100
[2025-04-30] MEDS: IPRATROPIUM/ALBUTEROL 0.5-3(2.5)MG/3ML NEB HHN SCH (02:34)
[2025-04-30] MEDS ORDERED: IOHEXOL-350 100 ML BOTTLE ONE (11:08)
[2025-04-30] MEDS: FUROSEMIDE 100MG/10ML VIAL IVP SCH (11:21)
[2025-04-30 13:21] LABS: *AMPHETAMINES SCREEN URINE NEGATIVE (NEGATIVE); *BARBITURATES SCREEN URINE NEGATIVE (NEGATIVE); *BENZODIAZEPINES SCREEN URINE NEGATIVE (NEGATIVE); *COCAINE SCREEN URINE PRESUMPTIVE POSITIVE (NEGATIVE); CANNABINOID URINE SCREEN NEGATIVE (NEGATIVE); ECSTASY MDMA SCREEN URINE NEGATIVE (NEGATIVE); METHADONE URINE SCREEN NEGATIVE (NEGATIVE); OPIATES URINE SCREEN PRESUMPTIVE POSITIVE (NEGATIVE); PHENCYCLIDINE URINE SCREEN NEGATIVE (NEGATIVE)
[2025-04-30] MEDS: EMPAGLIFLOZIN 10MG TABLET PO SCH (14:14)
[2025-05-01] VITALS (9 sets, daily range): BP systolic 94–120; BP diastolic 53–84; PULSE 73–90; RESP 14–20; TEMP 36.1–36.4; O2SAT 97–98
[2025-05-01] MEDS: METOLAZONE 2.5MG TABLET PO NR (10:43)
[2025-05-01] MEDS: POTASSIUM CHLORIDE 20MEQ TABLET SR PO NR (10:44)
[2025-05-01 10:46] LABS: CREATININE 1.2 mg/dL (0.6-1.0); UREA NITROGEN BLOOD 23.0 mg/dL (9-23)
[2025-05-01] MEDS: METHYLPREDNISOLONE SOD SUCC 40MG/ML (ACT-O-VIAL) IV NR (10:47)
[2025-05-01] MEDS: ZOLPIDEM TARTRATE 5MG TABLET PO PRN (22:54)
[2025-05-02] VITALS (7 sets, daily range): BP systolic 114–128; BP diastolic 75–85; PULSE 64–83; RESP 14–20; TEMP 36.4–36.7; O2SAT 95–100
[2025-05-02] MEDS: FUROSEMIDE 100MG/10ML VIAL IVP SCH (05:48)
== END 2025-05-02 16:39 | disposition home or self-care (01) | DRG 133 ==
LOC: ER 17:32 → 6WST 22:27 → ENRESERV 23:22
PROVIDERS: ADMIT Internal Medicine; ATTEND Internal Medicine
DX: J96.20 Acute and chronic respiratory failure, unspecified whether with hypoxia or hypercapnia (principal); I50.23 Acute on chronic systolic (congestive) heart failure; I11.0 Hypertensive heart disease with heart failure; J44.9 Chronic obstructive pulmonary disease, unspecified; E11.9 Type 2 diabetes mellitus without complications; F17.210 Nicotine dependence, cigarettes, uncomplicated; F14.90 Cocaine use, unspecified, uncomplicated; M54.9 Dorsalgia, unspecified; I25.2 Old myocardial infarction; Z71.6 Tobacco abuse counseling; Z91.148 Patient's other noncompliance with medication regimen for other reason; Z99.81 Dependence on supplemental oxygen; Z79.899 Other long term (current) drug therapy
CPT/HCPCS: 36415; 71045; 71275; 80048; 80061; 80076; 80305; 82375; 82803; 82962; 83036; 83735; 83880; 84484; 85025; 85379; 93005; 94070; 94640; 94664; 94760; 96374; 96375; 98960; 99285; J1200; J1885; J1938; J2060; J2919; Q9967

== ENCOUNTER 2025-05-18 17:45 | Emergency (ER) | payer OTHER ==
[~2025-05-18] VITALS: Ht 157.5 cm; Wt 86.0 kg
[~2025-05-18 17:45] MED LIST changes: -CEFP200T13 MT; -DIGO125T PO; -DOCU-422 PO; -FURO80TA3 PO; -LOSA25TA26 PO; -SPIR25TA PO
[2025-05-18 17:48] VITALS: TEMP 36.8; O2SAT 98
[2025-05-18] MEDS: NITROGLYCERIN 0.4MG TABLET SL SL ONE (20:32)
[2025-05-18] MEDS: FUROSEMIDE 40MG/4ML VIAL IV ONE (20:32)
[2025-05-18] MEDS: ASPIRIN 81MG TABLET PO ONE (20:33)
[2025-05-18 20:54] LABS: BASOPHILS % 1.2 % (0.0-2.0); EOSINOPHILS % 0.4 % (0.0-5.0); HEMATOCRIT. 35.9 % (36.0-48.0); HEMOGLOBIN. 11.2 g/dL (12.0-16.0); LYMPHOCYTES % 13.7 % (20.0-50.0); MEAN PLATELET VOLUME 8.6 fl (7.4-10.4); MONOCYTES % 12.3 % (2.0-8.0); NEUTROPHILS % 72.4 % (40.0-76.0); PLATELET 211 x1000/uL (130-400); RED BLOOD CELL COUNT 4.16 mill/uL (4.2-5.4); RED CELL DISTRIBUTION WIDTH 21.6 % (11.6-14.6)
[2025-05-18 21:01] LABS: INR 1.3
[2025-05-18 21:04] LABS: CREATININE 1.0 mg/dL (0.6-1.0); UREA NITROGEN BLOOD 8 mg/dL (9-23)
[2025-05-18 21:06] LABS: ASPARTATE AMINOTRANSFERASE 37 IU/L (<34); BILIRUBIN DIRECT 1.2 mg/dL (<=3.0); BILIRUBIN TOTAL 2.4 mg/dL (0.1-1.0); PROTEIN TOTAL 6.7 g/dL (6.0-8.3)
[2025-05-18 21:26] LABS: TROPONIN I HIGH SENSITIVITY 52 ng/L (3.0-34)
[2025-05-18] MEDS: DIPHENHYDRAMINE 25MG CAPSULE PO ONE (22:11)
[2025-05-18 23:09] VITALS: BP 135/89; PULSE 101; RESP 17; O2SAT 99
== END 2025-05-18 23:51 | disposition short-term general hospital (02) ==
LOC: ER 17:45 → CMPBEDREQ 05-19 07:25
DX: I11.0 Hypertensive heart disease with heart failure (principal); I50.9 Heart failure, unspecified; I21.4 Non-ST elevation (NSTEMI) myocardial infarction; E11.9 Type 2 diabetes mellitus without complications; J44.9 Chronic obstructive pulmonary disease, unspecified; Z91.148 Patient's other noncompliance with medication regimen for other reason; Z79.899 Other long term (current) drug therapy; Z79.84 Long term (current) use of oral hypoglycemic drugs; Z79.82 Long term (current) use of aspirin; Z79.01 Long term (current) use of anticoagulants
CPT/HCPCS: 80076; 80048; 83880; 83735; 85025; 85610; 84484; 36415; 71045; 96374; 99291; Z7610 ×4; Q0163; J1938; A4606